=== PATIENT | female | born 1965 | race Caucasian/White ===

== ENCOUNTER 2019-10-09 14:31 | Inpatient (IN) ==
[2019-10-09] MEDS ORDERED: IOPAMIDOL 100 ML BOTTLE IV ONE (14:32)
[2019-10-09] MEDS ORDERED: ACETAMINOPHEN 1,000 MG/100 ML BOTTLE IV ONE ×2 (14:43→16:17)
[2019-10-09] MEDS ORDERED: 0.9 % SODIUM CHLORIDE 1,000 ML IV ONE (14:43)
[2019-10-09 15:02] LABS: POC Blood Urea Nitrogen 19 mg/dl (6-20); POC CO2 22 mmol/L (22-30); POC Calcium, Ionized 1.15 mmol/L (1.16-1.32); POC Chloride 105 mmol/L (96-108); POC Creatinine 1.2 mg/dl (0.6-1.1); POC Glucose, Random 149 mg/dL (70-105); POC Potassium 4.7 mmol/L (3.3-5.1); POC Sodium 137 mmol/L (133-145)
[2019-10-09] MEDS ORDERED: cefTRIAXone 1 GM VIAL IV ONE (15:05)
[2019-10-09 15:29] LABS: Basophils # (Auto) 0 K/mcL (0.0-0.3); Basophils % (Auto) 0.1 % (0.0-2.0); Eosinophils # (Auto) 0 K/mcL (0.0-0.7); Eosinophils % (Auto) 0.6 % (0.0-7.0); Granulocytes % (Auto) 86.5 % (38.0-78.0); Hematocrit 32.1 % (36.0-48.0); Hemoglobin 10.6 g/dL (12.0-15.0); Lymphocytes # (Auto) 0.5 K/mcL (1.5-4.8); Lymphocytes % (Auto) 7.7 % (15.5-49.0); Mean Cell Volume 89.2 fL (80.0-100.0); Mean Corpuscular HGB Conc 33.1 g/dL (31.0-36.0); Mean Platelet Volume 7.1 fL (7.4-10.4); Monocytes # (Auto) 0.3 K/mcL (0.1-0.9); Monocytes % (Auto) 5.1 % (1.0-12.0); Platelet Count 252 K/mcL (140-440); Red Cell Distribution Width 13.7 % (11.5-14.5); WBC 6.3 K/mcL (4.5-11.0)
[2019-10-09 15:43] LABS: INR 1.1 (0.9-1.1); Prothrombin Time 14.5 sec (11.9-14.5)
--- NOTE | 2019-10-09 15:49 | Emergency Department Note ---
Abdominal Pain HPI - General Source: patient, family, EMS Mode of arrival: EMS Limitations: no limitations - History of Present Illness Associated symptoms: Reports: fever, chills. Denies: nausea, vomiting, diarrhea, anorexia, syncope <Kimberlee Haskins - Last Filed: 10/09/19 15:46> <Lionel Guo - Last Filed: 10/09/19 22:00> - General Chief Complaint: Abdominal Pain Stated Complaint: Abdominal Discomfort, Abscesses to RLE, Fever Time Seen by Provider: 10/09/19 14:42 - History of Present Illness HPI Narrative: 53-year-old female presents with illness for the last week. States she is had a fever and chills as well as redness and boils to her thighs bilaterally. States she is been waiting to get into her primary care provider but has not been able to assist today she finally came in here. Temp of 104 on arrival. She is complaining of a headache. No sore throat, cough, chest congestion, or cold symptoms. She does complain of right lower quadrant pain for the last 3 to 4 days. Decreased appetite. No nausea, vomiting, or diarrhea. Abdominal pain is worse with movement. She also has tenderness to her legs where her boils are she states. (Kimberlee Haskins) Patient with Kimberlee Haskins [employer]. I agree with her evaluation management documentation. This is a 53-year-old female who is been sick for the last week. She has a history of abscesses to her right leg and they have come back-she reports "boils" to her posterior right leg. High fever noted. No nausea vomiting diarrhea. Significant belly pain on the right lower quadrant as well. (Lionel Guo) - Related Data Home Medications Medication Instructions Recorded Confirmed Atorvastatin [Lipitor] 40 mg PO ONCE 10/09/19 10/09/19 Clopidogrel Bisulfate [Plavix] 75 mg PO DAILY 10/09/19 10/09/19 DULoxetine HCL [Cymbalta] 30 mg PO HS 10/09/19 10/09/19 Diazepam [Valium] 1 tab PO DAILY PRN 10/09/19 10/09/19 Escitalopram [Lexapro] 20 mg PO DAILY 10/09/19 10/09/19 Furosemide [Lasix] 40 mg PO DAILY 10/09/19 10/09/19 Insulin Detemir [Levemir Flextouch] 35 unit SQ HS 10/09/19 10/09/19 Lisinopril [Zestril] 20 mg PO HS 10/09/19 10/09/19 Loperamide [Imodium] 4 mg PO BID PRN 10/09/19 10/09/19 Potassium Chloride 10 meq PO DAILY 10/09/19 10/09/19 Prazosin [Minipress] 1 mg PO HS 10/09/19 10/09/19 Topiramate [Topamax] 150 mg PO BID 10/09/19 10/09/19 Victoza 2-Wil 1.8 mg SQ DAILY 10/09/19 10/09/19 metFORMIN HCL [Metformin HCl] 1,000 mg PO BID 10/09/19 10/09/19 Allergies Allergy/AdvReac Type Severity Reaction Status Date / Time Sulfa (Sulfonamide Allergy Mild Hives Verified 08/09/19 14:55 Antibiotics) Review of Systems All systems ED: reviewed and negative except as stated. <Kimberlee Haskins - Last Filed: 10/09/19 15:46> Abdominal Pain PMH - Past Medical History Medical history: Reports: CVA, migraine, obesity (morbid), other ("fatty liver") - Social History Smoking status: Never smoker Alcohol use: Reports: None Drug use: Reports: none <Kimberlee Haskins - Last Filed: 10/09/19 15:46> - Past Medical History Attestation: Yes: The following information was validated with the patient. <Lionel Guo - Last Filed: 10/09/19 22:00> Physical Exam Limitations: no limitations General appearance: alert, other (morbid obesity, foul order present) Head: atraumatic, normocephalic, normal inspection Eye: Present: normal appearance. Absent: conjunctival injection ENT: Present: mucous membranes moist Chest: Present: symmetric chest wall rise Respiratory: Present: normal lung sounds bilaterally, other (dimished bases bilat). Absent: respiratory distress, rales/crackles, accessory muscle use Cardiovascular: Present: regular rate, normal heart sounds Abdominal: Present: soft, tenderness (RLQ), normal bowel sounds, other (large panis with red/moist fungal yeast infection present to fold of panis and inner thighs). Absent: distention, guarding, rebound, rigidity, mass Extremities: Present: other (redness and warmth to upper legs/inner thighs bilat, bilat posterior and medial thighs with small 3-4 cm multiple red raised abscess with scant drainage). Absent: normal inspection Neurological: Present: alert, oriented X3 Psychiatric: Present: agitated Skin: Present: warm, dry, intact, normal color <Kimberlee Haskins - Last Filed: 10/09/19 15:46> <Lionel Guo - Last Filed: 10/09/19 22:00> On my examination she is alert oriented able to answer questions appropriately. Heart is regular rate and rhythm no murmur appreciated. Lungs are clear to auscultation bilaterally without wheezes rales rhonchi or respiratory distress. Abdomen is soft mildly diffusely tender but she has a large pannus. She does have some mild intertrigo which looks candidal but not severe. She does also have cellulitis especially of the medial thighs and the posterior thighs. But she does have ulcerations and induration of several unroofed blisters at the back of her right thigh. This is acutely inflamed and erythematous significantly tender. I cultured this area with a swab. She is morbidly obese but she is able to move around in the bed some with mild assistance. (Lionel Guo) Course <Kimberlee Haskins - Last Filed: 10/09/19 15:46> Course Narrative: Patient on arrival and examination is refusing Tylenol. States she has a history of fatty liver and a history of kidney issues and she absolutely refuses to take Tylenol or ibuprofen but states she will take something stronger for headache. @ 1600 report given to Jamie Bryan NP and Dr. Guo due to shift change. (Kimberlee Haskins) Vital Signs Temperature 103.8 F H 10/09/19 14:32 Pulse Rate 104 H 10/09/19 14:32 Respiratory Rate 20 10/09/19 14:32 Pulse Oximetry (%) 100 10/09/19 14:32 Temperature 101.4 F H 10/09/19 21:41 Pulse Rate 92 H 10/09/19 21:41 Respiratory Rate 18 10/09/19 21:41 Blood Pressure 131/62 10/09/19 21:41 Pulse Oximetry (%) 97 10/09/19 21:41 Abdominal Pain - Lab Data Result diagrams: 10/09/19 14:50 10/09/19 14:50 <Kimberlee Haskins - Last Filed: 10/09/19 15:46> - Lab Data Lab results reviewed: Yes I reviewed the patient's lab results. Result diagrams: 10/09/19 14:50 10/09/19 14:50 - Radiology Data Radiology results reviewed: Yes I reviewed the patient's radiology results. <Lionel Guo - Last Filed: 10/09/19 22:00> - Lab Data Lab Results 10/09/19 10/09/19 10/09/19 Range/Units 14:50 14:50 14:50 WBC 6.3 (4.5-11.0) K/mcL RBC 3.60 L (4.00-5.20) M/mcL Hgb 10.6 L (12.0-15.0) g/dL Hct 32.1 L (36.0-48.0) % POC Hct 32.0 L (36.0-48.0) % MCV 89.2 (80.0-100.0) fL MCH 29.6 (26.0-34.0) pg MCHC 33.1 (31.0-36.0) g/dL RDW 13.7 (11.5-14.5) % Plt Count 252 (140-440) K/mcL MPV 7.1 L (7.4-10.4) fL Gran % 86.5 H (38.0-78.0) % Lymph % (Auto) 7.7 L (15.5-49.0) % [place] % (Auto) 5.1 (1.0-12.0) % Eos % (Auto) 0.6 (0.0-7.0) % Baso % (Auto) 0.1 (0.0-2.0) % Gran # 5.4 (1.8-8.0) K/mcL Lymph # (Auto) 0.5 L (1.5-4.8) K/mcL [place] # (Auto) 0.3 (0.1-0.9) K/mcL Eos # (Auto) 0 (0.0-0.7) K/mcL Baso # (Auto) 0 (0.0-0.3) K/mcL PT (11.9-14.5) sec INR (0.9-1.1) VBG Lactic Acid 1.5 (0.5-2.0) mmol/L POC Sodium 137 (133-145) mmol/L Sodium 134 (133-145) mmol/L POC Potassium 4.7 (3.3-5.1) mmol/L Potassium 4.7 (3.3-5.1) mmol/L POC Chloride 105 (96-108) mmol/L Chloride 101 (96-108) mmol/L Carbon Dioxide 21 L (22-30) mmol/L POC Total CO2 22 (22-30) mmol/L Anion Gap 12.0 (8-16) POC BUN 19 (6-20) mg/dl BUN 19 (6-20) mg/dl Creatinine 1.1 (0.6-1.1) mg/dl POC Creatinine 1.2 H (0.6-1.1) mg/dl GFR Calculation 58 Glucose 150 H (70-105) mg/dL POC Glucose 149 H (70-105) mg/dL Calcium 8.9 (8.6-10.4) mg/dl POC WB Ioniz Calcium 1.15 L (1.16-1.32) mmol/L Total Bilirubin 0.3 (0.0-1.0) mg/dL AST 8 (0-37) U/l ALT 9 (0-40) U/l Alkaline Phosphatase 99 (39-117) U/L Total Protein 7.5 (5.9-8.4) gm/dL Albumin 3.6 (3.2-5.2) gm/dL Globulin 3.9 H (2.2-3.7) gm/dL Albumin/Globulin Ratio 0.9 L (1.0-2.3) Procalcitonin (<0.10) ng/mL Urine Color Urine Appearance Urine pH (5.0-9.0) Ur Specific [place] (1.000-1.035) Urine Protein (NEG) mg/dL Urine Glucose (UA) (NEG) mg/dL Urine Ketones (NEG) mg/dL Urine Occult Blood (<0.03) mg/dL Urine Nitrate (NEG) Urine Bilirubin (NEG) mg/dL Urine Urobilinogen (NEG) mg/dL Ur Leukocyte Esterase (NEG) /uL Ur Culture Indicated? 10/09/19 10/09/19 10/09/19 Range/Units 14:50 14:50 15:41 WBC (4.5-11.0) K/mcL RBC (4.00-5.20) M/mcL Hgb (12.0-15.0) g/dL Hct (36.0-48.0) % POC Hct (36.0-48.0) % MCV (80.0-100.0) fL MCH (26.0-34.0) pg MCHC (31.0-36.0) g/dL RDW (11.5-14.5) % Plt Count (140-440) K/mcL MPV (7.4-10.4) fL Gran % (38.0-78.0) % Lymph % (Auto) (15.5-49.0) % [place] % (Auto) (1.0-12.0) % Eos % (Auto) (0.0-7.0) % Baso % (Auto) (0.0-2.0) % Gran # (1.8-8.0) K/mcL Lymph # (Auto) (1.5-4.8) K/mcL [place] # (Auto) (0.1-0.9) K/mcL Eos # (Auto) (0.0-0.7) K/mcL Baso # (Auto) (0.0-0.3) K/mcL PT 14.5 (11.9-14.5) sec INR 1.1 (0.9-1.1) VBG Lactic Acid (0.5-2.0) mmol/L POC Sodium (133-145) mmol/L Sodium (133-145) mmol/L POC Potassium (3.3-5.1) mmol/L Potassium (3.3-5.1) mmol/L POC Chloride (96-108) mmol/L Chloride (96-108) mmol/L Carbon Dioxide (22-30) mmol/L POC Total CO2 (22-30) mmol/L Anion Gap (8-16) POC BUN (6-20) mg/dl BUN (6-20) mg/dl Creatinine (0.6-1.1) mg/dl POC Creatinine (0.6-1.1) mg/dl GFR Calculation Glucose (70-105) mg/dL POC Glucose (70-105) mg/dL Calcium (8.6-10.4) mg/dl POC WB Ioniz Calcium (1.16-1.32) mmol/L Total Bilirubin (0.0-1.0) mg/dL AST (0-37) U/l ALT (0-40) U/l Alkaline Phosphatase (39-117) U/L Total Protein (5.9-8.4) gm/dL Albumin (3.2-5.2) gm/dL Globulin (2.2-3.7) gm/dL Albumin/Globulin Ratio (1.0-2.3) Procalcitonin < 0.10 (<0.10) ng/mL Urine Color Yellow Urine Appearance Clear Urine pH 7.0 (5.0-9.0) Ur Specific [place] 1.014 (1.000-1.035) Urine Protein Neg (NEG) mg/dL Urine Glucose (UA) Negative (NEG) mg/dL Urine Ketones Neg (NEG) mg/dL Urine Occult Blood Neg (<0.03) mg/dL Urine Nitrate Neg (NEG) Urine Bilirubin Neg (NEG) mg/dL Urine Urobilinogen Neg (NEG) mg/dL Ur Leukocyte Esterase Neg (NEG) /uL Ur Culture Indicated? No - Radiology Data CT scan of the abdomen and pelvis shows no acute findings (Lionel Guo) Disposition <Kimberlee Haskins - Last Filed: 10/09/19 15:46> Pt seen by [facility]/PA only: No <Lionel Guo - Last Filed: 10/09/19 22:00> Clinical Impression: Abscess or cellulitis of thigh Summary: Influenza swab and respiratory virus panel are negative for cause of her acute high fever. Blood culture was done and Rocephin was started. I did convince her to take IV Tylenol, which brought her fever down and she was feeling much better. We did give her some pain medicine as well. Laboratory work-up was not very remarkable but it does look like she is got severe cellulitis to her posterior right thigh and medial thigh area with an indurated area. I did not feel a specific abscess to this area so I&D is likely not helpful. She was tachycardic tachypneic and febrile and the source seems to be this cellulitis area of her posterior right thigh. I do think she is going to require IV antibiotics to prevent her from going septic. To that end I discussed the case with our hospitalist Dr. Aguilera, he agreed to accept the patient for further care and evaluation in the hospital (Lionel Guo) Disposition: Xfer As Inpt ([facility]) Condition: Fair Referrals: Yuri Hawk MD [Primary Care Provider] -
[2019-10-09 15:53] LABS: ALT/SGPT 9 U/l (0-40); AST/SGOT 8 U/l (0-37); Albumin 3.6 gm/dL (3.2-5.2); Albumin/Globulin Ratio 0.9 (1.0-2.3); Alkaline Phosphatase 99 U/L (39-117); Bilirubin,Total 0.3 mg/dL (0.0-1.0); Calcium 8.9 mg/dl (8.6-10.4); Carbon Dioxide 21 mmol/L (22-30); Chloride 101 mmol/L (96-108); Globulin 3.9 gm/dL (2.2-3.7); Glucose 150 mg/dL (70-105)
[2019-10-09 15:59] LABS: Blood Urea Nitrogen 19 mg/dl (6-20); Glomerular Filtration Rate 58
[2019-10-09 16:25] LABS: Appearance,Urine CLEAR; Bilirubin,Urine NEG (NEG); Color,Urine YELLOW; Culture Indicated,Urine NO; Glucose,Urine (UA) NEGATIVE (NEG); Ketones,Urine NEG (NEG); Leukocyte Esterase,Urine NEG /uL (NEG); Nitrate,Urine NEG (NEG); Protein,Urine NEG (NEG); Specific Gravity,Urine 1.014 (1.000-1.035); Urine Blood NEG mg/dL (<0.03); Urobilinogen,Urine NEG (NEG)
[2019-10-09] MEDS ORDERED: 0.9 % SODIUM CHLORIDE 2,000 ML IV ONE (16:36)
--- NOTE | 2019-10-09 17:06 | Cat Scan Report ---
CLINICAL INFORMATION: Right lower quadrant pain and fever COMPARISON: None. TECHNIQUE: Following enteric contrast, 80 cc of Isovue-370 were injected intravenously, and 60 seconds later, 0.625 mm helical slices were obtained from the mid heart through the subtrochanteric regions. Following reconstruction, 2.5 mm sagittal, coronal and axial reformatted images were processed and reviewed at bone, lung and soft tissue windows. Five minutes later, 0.625 mm helical slices were obtained from the mid heart through the kidneys and viewed at soft tissue windows.The exam was performed using radiation dose optimization techniques including, but not limited to, automated exposure control, adjustment of the mA and/or kV according to patient size and use of iterative reconstruction technique. FINDINGS: 6 lung bases show no abnormality no effusion. Heart is normal size. There appears to be calcification in the mitral annulus Abdominal images show the gallbladder is surgically absent. The common bile duct normal caliber: CBD is 5 mm. The liver, both adrenal glands, spleen, pancreas and aorta including aortic branches are normal in size, configuration and attenuation without focal lesion. 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 There is no free air, free fluid or adenopathy Pelvic images show the urinary bladder is drained with a Hayward catheter. The Hayward balloon is low in position and may be inflated within the posterior urethra. The uterus is normal postmenopausal size 7 x 4 cm there is an 18 mm submucosal fibroid posterior uterus. The stomach, small bowel, appendix and large bowel are all unremarkable. There is a 8 cm paraumbilical hernia containing only mesenteric fat. Bone windows show no osseous abnormality IMPRESSION: 1. No cause identified for right lower quadrant pain and fever - the appendix is normal 2. Malrotated kidneys 3. A a centimeter paraumbilical hernia containing only mesenteric fat. 4. 18 mm partially calcified submucosal fibroid in the uterine body Interpreted and Authenticated by: Andrea Arnold 10/09/19
[2019-10-09] MEDS ORDERED: HYDROmorphone 2 MG/ML VIAL IV ONE (19:54)
--- NOTE | 2019-10-09 21:54 | Internal Med History&Physical ---
Medical - H&P: [facility] Patient information: Note initiated : 10/09/19 at 9:50 pm Service Date, if different from initiated Date: [] Patient: Kait Tolentino 53 y/o F admitted on for Abdominal Discomfort, Abscesses to RLE, Fever. Chief Complaint: [] Chief complaint: tHigh pain/boils/abdominal pain and fever History of present illness: Ms. Tolentino is a 53 year old F with known history of diabetes/morbidly obese with BMI >65/hypertension and history of TIA who presents with shaking chills fever along with lower abdominal pain. Patient symptoms have progressed over the last few days. She has had recurrent boils around the inside and back of the thigh area. She was treated for the same at [facility] in March and underwent incision and drainage of groin abscess. For the last couple days she has had increasing malaise/fever/chills and lack of appetite. She noticed a couple of boils started draining. She presents today to the ER along with her [place]. Initial work-up was consistent with severe sepsis with a fever 103 tachycardia tachypnea and medial thigh boils with active drainage. CT abdomen was unremarkable. Thigh ultrasound pending. Hospitalist service was consulted for admission. At the time of evaluation patient is alert but anxious. She is febrile at 101.4. She received 1 dose of Rocephin. She denies change medication. Her blood sugars has not been optimally controlled recently. She denies smoking or alcoholism. She carries a history of MRSA and recurrent boils. She denies diarrhea, dysuria, headache, photophobia but endorses to myalgias. Review of systems A 10 point review of system was performed and is negative except for one discussed above Medical - H&P: PMH Medical history: DM type II Anxiety disorder Morbid obesity Hypertension History of TIA Hyperlipidemia Migraine Pertinent family history: Unremarkable Social history: No history of smoking Occasional alcohol to [place] Medical - H&P: Meds Home Medications Medication Instructions Recorded Confirmed Type Atorvastatin [Lipitor] 40 mg PO ONCE 10/09/19 10/09/19 History Clopidogrel Bisulfate [Plavix] 75 mg PO DAILY 10/09/19 10/09/19 History DULoxetine HCL [Cymbalta] 30 mg PO HS 10/09/19 10/09/19 History Diazepam [Valium] 1 tab PO DAILY PRN 10/09/19 10/09/19 History Escitalopram [Lexapro] 20 mg PO DAILY 10/09/19 10/09/19 History Furosemide [Lasix] 40 mg PO DAILY 10/09/19 10/09/19 History Insulin Detemir [Levemir Flextouch] 35 unit SQ HS 10/09/19 10/09/19 History Lisinopril [Zestril] 20 mg PO HS 10/09/19 10/09/19 History Loperamide [Imodium] 4 mg PO BID PRN 10/09/19 10/09/19 History Potassium Chloride 10 meq PO DAILY 10/09/19 10/09/19 History Prazosin [Minipress] 1 mg PO HS 10/09/19 10/09/19 History Topiramate [Topamax] 150 mg PO BID 10/09/19 10/09/19 History Victoza 2-Wil 1.8 mg SQ DAILY 10/09/19 10/09/19 History metFORMIN HCL [Metformin HCl] 1,000 mg PO BID 10/09/19 10/09/19 History Allergies Allergy/AdvReac Type Severity Reaction Status Date / Time Sulfa (Sulfonamide Allergy Mild Hives Verified 08/09/19 14:55 Antibiotics) Medical - H&P: Exam - Constitutional Vitals: Temp Pulse Resp BP Pulse Ox 101.4 F H 92 H 18 131/62 97 10/09/19 21:41 10/09/19 21:41 10/09/19 21:41 10/09/19 21:41 10/09/19 21:41 General appearance: morbidly obese Exam: Anxious, morbidly obese BMI over 65 Head normocephalic Oral cavity dry No ear nose discharge Eye movement symmetrical Neck no lymphadenopathy S1-S2 regular rhythm tachycardia Tachypnea but symmetric breath sounds Extensively pendulous abdomen with pannus, pannus fold erythema Lower extremity bilateral medial groin draining pustules/right posterior thigh 4 x 4 centimeter dusky tender and indurated area with minimal fluctuation Minimal lymphedema No cyanosis clubbing Skin no suspicious lesion Psych anxious but alert and cooperative Neuro nonfocal Medical - H&P: Reslt - Labs CBC & Chem 7: 10/10/19 04:15 10/10/19 04:15 Labs: Short CBC 10/09/19 Range/Units 14:50 WBC 6.3 (4.5-11.0) K/mcL Hgb 10.6 L (12.0-15.0) g/dL Hct 32.1 L (36.0-48.0) % Plt Count 252 (140-440) K/mcL BMP 10/09/19 14:50 Sodium 134 Potassium 4.7 Chloride 101 Carbon Dioxide 21 L BUN 19 Creatinine 1.1 Glucose 150 H Calcium 8.9 Liver Function 10/09/19 Range/Units 14:50 Total Bilirubin 0.3 (0.0-1.0) mg/dL AST 8 (0-37) U/l ALT 9 (0-40) U/l Alkaline Phosphatase 99 (39-117) U/L Albumin 3.6 (3.2-5.2) gm/dL Urine 10/09/19 Range/Units 15:41 Urine Color Yellow Urine Appearance Clear Urine pH 7.0 (5.0-9.0) Ur Specific [place] 1.014 (1.000-1.035) Urine Protein Neg (NEG) mg/dL Urine Glucose (UA) Negative (NEG) mg/dL Medical - H&P: A/P (1) Abscess or cellulitis of thigh Current visit: Yes Status: Acute * Cellulitis with furunculosis/abscess medial and posterior R thigh, history of MRSA, imaging with ultrasound/antibiotic coverage for strep/MRSA, surgery consult * Early sepsis-management per guidelines * DM type II-basal prandial insulin, CC diet, optimize blood sugar control * Morbid obesity-frequent turning/perineal care/nutrition consult * Hypertension hold antihypertensives until systolics stabilizes * History of TIA continue Plavix statin * Hyperlipidemia continue statin * Anxiety disorder continue diazepam/Cymbalta * Full code * Prophylaxis heparin Plan * Inpatient admission * Broad antibiotic coverage * Prior medical condition management home meds * Surgery consult * Keep n.p.o. after midnight
[2019-10-09] MEDS ORDERED: POTASSIUM CHLORIDE 20 MEQ PACKET PO PRN (22:56)
[2019-10-09] MEDS ORDERED: MAGNESIUM HYDROXIDE 30 ML ORAL.SUSP PO PRN (22:56)
[2019-10-09] MEDS ORDERED: MAGNESIUM SULFATE 2 GM/50 ML BAG IV PRN (22:56)
[2019-10-09] MEDS ORDERED: POLYETHYLENE GLYCOL 3350 17 GM PACKET PO PRN (22:56)
[2019-10-09] MEDS ORDERED: DEXTROSE 31 GM ORAL.SUSP PO PRN (22:56)
[2019-10-09] MEDS ORDERED: ONDANSETRON 4 MG/2 ML VIAL IV PRN (22:56)
[2019-10-09] MEDS ORDERED: ATORVASTATIN 40 MG TABLET PO SCH (22:56)
[2019-10-09] MEDS ORDERED: DEXTROSE 50% 50 ML VIAL IV PRN (22:56)
[2019-10-09] MEDS ORDERED: LOPERAMIDE 2 MG CAPSULE PO PRN (22:56)
[2019-10-09] MEDS ORDERED: ACETAMINOPHEN 325 MG TABLET PO PRN (22:56)
[2019-10-09] MEDS ORDERED: VANCOMYCIN PER PHARMACY IV SCH (22:56)
[2019-10-09] MEDS ORDERED: DIAZEPAM 2 MG TABLET PO PRN (22:56)
[2019-10-09] MEDS ORDERED: MELATONIN 3 MG TABLET PO PRN (22:56)
[2019-10-09] MEDS ORDERED: hydrALAZINE 20 MG/ML VIAL IV PRN (22:56)
[2019-10-09] MEDS ORDERED: ACETAMINOPHEN 650 MG/65 ML BOTTLE IV PRN (22:56)
[2019-10-09] MEDS ORDERED: VANCOMYCIN 1,500 MG in 0.9 % SODIUM CHLORIDE 500 ML IV ONE (23:23)
[2019-10-09] MEDS: PIPERACILLIN SODIUM/TAZOBACTAM 3.375 GM in DEXTROSE 5% IN WATER 50 ML IV SCH (23:43)
[2019-10-09] MEDS: 0.9 % SODIUM CHLORIDE 10 ML SYRINGE IV SCH (23:44)
[2019-10-09] MEDS: METOPROLOL TARTRATE 5 MG/5 ML VIAL IV SCH ×2 (23:47→23:48)
[2019-10-10] MEDS: HYDROcodone/APAP 5/325MG TABLET PO PRN ×4 (02:20→23:29)
[2019-10-10] MEDS ORDERED: HYDROcodone/APAP 5/325MG TABLET PO ONE (02:23)
[2019-10-10] MEDS: PIPERACILLIN SODIUM/TAZOBACTAM 3.375 GM in DEXTROSE 5% IN WATER 50 ML IV SCH ×3 (04:41→17:21)
[2019-10-10] MEDS: 0.9 % SODIUM CHLORIDE 10 ML SYRINGE IV SCH ×3 (05:10→20:31)
[2019-10-10 06:30] LABS: Hematocrit 30.5 % (36.0-48.0); Hemoglobin 10.1 g/dL (12.0-15.0); Mean Cell Volume 90.3 fL (80.0-100.0); Mean Platelet Volume 7.2 fL (7.4-10.4); Platelet Count 210 K/mcL (140-440); RBC 3.38 M/mcL (4.00-5.20); Red Cell Distribution Width 13.6 % (11.5-14.5); WBC 5.8 K/mcL (4.5-11.0)
[2019-10-10 07:01] LABS: Bilirubin,Direct < 0.2 mg/dL (0.0-0.3); Chloride 103 mmol/L (96-108)
[2019-10-10 07:12] LABS: ALT/SGPT 8 U/l (0-40); AST/SGOT 12 U/l (0-37); Albumin 3.2 gm/dL (3.2-5.2); Albumin/Globulin Ratio 0.8 (1.0-2.3); Alkaline Phosphatase 85 U/L (39-117); Bilirubin,Total 0.2 mg/dL (0.0-1.0); Blood Urea Nitrogen 19 mg/dl (6-20); Calcium 8.5 mg/dl (8.6-10.4); Carbon Dioxide 20 mmol/L (22-30); Globulin 3.8 gm/dL (2.2-3.7); Glomerular Filtration Rate 47; Glucose 138 mg/dL (70-105); Lactate Dehydrogenase 175 U/L (94-250); Phosphorous 3.5 mg/dL (2.7-4.5); Triglycerides 133 mg/dl (<150); Uric Acid 8.4 mg/dL (2.5-8.0)
[2019-10-10 07:20] LABS: Band Neutrophils % 6 % (0-10); Lymphocytes % 18 % (15-49); Monocytes % (Manual) 10 % (1-12); Myelocytes % 1 % (0-0); Platelet Estimate NORMAL (NORMAL); RBC Morphology NORMAL (NORMAL); Segmented Neutrophils % 65 % (38-78)
[2019-10-10] MEDS ORDERED: FUROSEMIDE 40 MG/4 ML VIAL IV SCH (08:00)
[2019-10-10] MEDS ORDERED: POTASSIUM CHLORIDE 10 MEQ TABLET PO SCH (08:00)
[2019-10-10] MEDS ORDERED: MULTIVIT,THER IRON,CA,FA & MIN 1 TABLET PO SCH (09:00)
[2019-10-10] MEDS ORDERED: CLOPIDOGREL 75 MG TABLET PO SCH (09:00)
[2019-10-10] MEDS ORDERED: HEPARIN 5,000 UNIT/ML VIAL SQ SCH (09:00)
[2019-10-10] MEDS ORDERED: sitaGLIPtin 100 MG TABLET PO SCH (09:00)
[2019-10-10] MEDS ORDERED: VICTOZA SC SCH (09:00)
[2019-10-10] MEDS ORDERED: VANCOMYCIN 1,500 MG in 0.9 % SODIUM CHLORIDE 500 ML IV SCH (09:00)
[2019-10-10] MEDS ORDERED: TOPIRAMATE 100 MG TABLET PO SCH (09:00)
[2019-10-10] MEDS ORDERED: DOCUSATE SODIUM 100 MG CAPSULE PO SCH (09:00)
[2019-10-10] MEDS ORDERED: PAK SC SCH (09:00)
[2019-10-10] MEDS ORDERED: ESCITALOPRAM 20 MG TABLET PO SCH (09:00)
[2019-10-10] MEDS: INSULIN LISPRO 1 UNIT/0.01 ML UNIT SQ SCH ×4 (09:14→20:28)
--- NOTE | 2019-10-10 09:37 | Internal Med Progress Note ---
Medical - PN: Subj Patient information: Note initiated : 10/10/19 at 9:35 am Service Date, if different from initiated Date: [] Patient: Kait Tolentino 53 y/o F admitted on 10/09/19 for Abdominal Discomfort, Abscesses to RLE, Fever. Chief Complaint: [] Interval history: Ms. Tolentino is a 53 year old F with known history of diabetes/morbidly obese with BMI >65/hypertension and history of TIA who presents with shaking chills fever along with lower abdominal pain. Patient symptoms have progressed over the last few days. She has had recurrent boils around the inside and back of the thigh area. She was treated for the same at [facility] in March and underwent incision and drainage of groin abscess. For the last couple days she has had increasing malaise/fever/chills and lack of appetite. She noticed a couple of boils started draining. She presents today to the ER along with her [place]. Initial work-up was consistent with severe sepsis with a fever 103 tachycardia tachypnea and medial thigh boils with active drainage. CT abdomen was unremarkable. Thigh ultrasound pending. Hospitalist service was consulted for admission. At the time of evaluation patient is alert but anxious. She is febrile at 101.4. She received 1 dose of Rocephin. She denies change medication. Her blood sugars has not been optimally controlled recently. She denies smoking or alcoholism. She carries a history of MRSA and recurrent boils. She denies diarrhea, dysuria, headache, photophobia but endorses to myalgias. 10/10-patient doing well. Fever defervesced. Minimal pain diarrhea. By ultrasound today. Continuing antibiotic coverage. White count 6000. Tachycardia improved. Blood sugars around goal. Creatinine 1.3. Continue holding RADHA inhibitors. Diabetic diet - Constitutional Vitals: Vital Signs Temp Pulse Resp BP Pulse Ox 99.2 F H 92 H 16 99/58 94 10/10/19 06:51 10/10/19 06:51 10/10/19 06:51 10/10/19 06:51 10/10/19 06:51 Period Temp Pulse Resp BP Sys/Jay Pulse Ox Last 24 Hr 98.6 F-104.0 F 90-107 16-39 99-157/27-113 92-100 Intake and Output 10/09/19 10/10/1919 21:59 05:59 13:59 Intake Total 3100 350 Output Total 2400 Balance 310 Weight 365 lb 372 lb Intake & Output: Intake & Output 10/09/19 10/10/19 10/10/19 21:59 05:59 13:59 Intake Total 3100 350 Output Total 2400 Balance 310 -2050 Weight 365 lb 372 lb Intake: IV 3100 50 Sodium Chloride 0.9% 2,000 ml @ 3000 Wide Open IV BOLUS ONE Rx#: [id number] Zosyn 3.375 gm In Dextrose 5% 50 in Water 50 ml @ 100 mls/hr IV Q6H NITESH Rx#:[id number] Oral 300 Output: Urine Catheter Amount 2400 Other: Urine Appearance Clear Uretheral ([place]) Sediment Clear Urine Color Bright Yellow Uretheral ([place]) Dark Yellow Urine Odor Normal Uretheral ([place]) Strong General appearance: morbidly obese Exam: No anxiety Nonlabored breathing Nondistended nontender abdomen Right posterior thigh indurated area Medical - PN: Obj Da - Labs CBC & Chem 7: 10/10/19 04:15 10/10/19 04:15 Labs: Abnormal Lab Results 10/10/19 10/10/19 10/09/19 04:15 04:15 14:50 RBC 3.38 L Hgb 10.1 L Hct 30.5 L POC Hct MPV 7.2 L Gran % Lymph % (Auto) Lymph # (Auto) Myelocytes % 1 H ESR Carbon Dioxide 20 L Creatinine 1.3 H POC Creatinine Glucose 138 H POC Glucose Uric Acid 8.4 H Calcium 8.5 L POC WB Ioniz Calcium C-Reactive Protein 10.5 H Globulin 3.8 H Albumin/Globulin Ratio 0.8 L 10/09/19 10/09/19 10/09/19 14:50 14:50 14:50 RBC 3.60 L Hgb 10.6 L Hct 32.1 L POC Hct 32.0 L MPV 7.1 L Gran % 86.5 H Lymph % (Auto) 7.7 L Lymph # (Auto) 0.5 L Myelocytes % ESR 104 H Carbon Dioxide 21 L Creatinine POC Creatinine 1.2 H Glucose 150 H POC Glucose 149 H Uric Acid Calcium POC WB Ioniz Calcium 1.15 L C-Reactive Protein Globulin 3.9 H Albumin/Globulin Ratio 0.9 L Meds: Medications Acetaminophen (Tylenol) 650 mg PO Q4-6HP PRN; Protocol PRN Reason: Per Pain Protocol/Fever > 101 Hydrocodone Bitart/Acetaminophen ([place] 5/325mg) 0 tab PO Q4HP PRN; Protocol PRN Reason: Per Pain Protocol Last Admin: 10/10/19 02:20 Dose: 2 tab Documented by: Atorvastatin Calcium (Lipitor) 40 mg PO HS [facility] Clopidogrel Bisulfate (Plavix) 75 mg PO DAILY [facility] Last Admin: 10/10/19 09:15 Dose: 75 mg Documented by: Dextrose (Dextrose 50%) 0 ml IV UD PRN PRN Reason: Hypoglycemia Diagnostic Test (Pha) (Accu-Chek) 1 each FS ACHS [facility] Last Admin: 10/10/19 07:54 Dose: 1 each Documented by: Diazepam (Valium) 2 mg PO DAILYP PRN PRN Reason: Anxiety Docusate Sodium (Colace) 100 mg PO BID [facility] Last Admin: 10/10/19 09:15 Dose: 100 mg Documented by: Duloxetine HCl (Cymbalta) 30 mg PO HS [facility] Escitalopram Oxalate (Lexapro) 20 mg PO DAILY [facility] Last Admin: 10/10/19 09:15 Dose: 20 mg Documented by: Furosemide (Lasix) 20 mg IV BIDD [facility] Last Admin: 10/10/19 07:49 Dose: 20 mg Documented by: Glucose (Insta-Glucose) 15 gm PO PRN PRN PRN Reason: Hypoglycemia Heparin Sodium (Porcine) (Heparin) 5,000 unit SQ Q12 [facility] Last Admin: 10/10/19 09:14 Dose: 5,000 unit Documented by: Hydralazine HCl (Apresoline) 10 mg IV Q4-6HP PRN PRN Reason: Hypertension Acetaminophen (Ofirmev) 650 mg in 65 mls @ 130 mls/hr IV Q6HP PRN; Protocol PRN Reason: Per Pain Protocol/Fever > 101 Last Admin: 10/09/19 23:48 Dose: 130 mls/hr Documented by: Magnesium Sulfate (Magnesium Sulfate) 2 gm in 50 mls @ 50 mls/hr IV UD PRN PRN Reason: MG = or < 1.7 Piperacillin Sod/Tazobactam (Sod 3.375 gm/ Dextrose) 50 mls @ 100 mls/hr IV Q6H [facility]; Protocol Last Admin: 10/10/19 04:41 Dose: 100 mls/hr Documented by: Vancomycin HCl 1,500 mg/ (Sodium Chloride) 500 mls @ 333.3 mls/hr IV Q12H [facility] Last Admin: 10/10/19 09:15 Dose: 333.3 mls/hr Documented by: Insulin Glargine (Lantus) 35 unit SQ HS [facility] Insulin Human Lispro (Humalog) 0 unit SQ [facility]; Protocol Last Admin: 10/10/19 09:14 Dose: 1 unit Documented by: Iron Carb/Multivit/[place]/Folic Acid (Multivitamin W/Minerals) 1 tab PO DAILY [facility] Last Admin: 10/10/19 09:15 Dose: 1 tab Documented by: Loperamide HCl (Imodium) 4 mg PO BIDP PRN PRN Reason: Diarrhea Magnesium Hydroxide (Milk Of Magnesia) 30 ml PO HSP PRN PRN Reason: Constipation Melatonin (Melatonin 3mg Tablet) 3 mg PO HSP PRN PRN Reason: Insomnia Ondansetron HCl (Zofran) 4 mg IV Q4-6HP PRN; Protocol PRN Reason: Nausea And Vomiting Victoza 2-Wil 1.8 Mg 1 dose SC DAILY [facility] Last Admin: 10/10/19 09:25 Dose: Not Given Documented by: Polyethylene Glycol (Miralax) 17 gm PO DAILYP PRN PRN Reason: Constipation Potassium Chloride (Klor-Con) 40 meq PO DAILYP PRN PRN Reason: K+ < 3.5 [facility] Last Admin: 10/10/19 07:49 Dose: 10 meq Documented by: Prazosin HCl (Minipress) 1 mg PO [facility] Senna/Docusate Sodium (Senna Plus Tablet) 1 tab PO [facility] Sitagliptin Phosphate (Januvia) 100 mg PO DAILY [facility] Last Admin: 10/10/19 09:15 Dose: 100 mg Documented by: Sodium Chloride (Saline Flush) 10 ml IV Q8 [facility] Last Admin: 10/10/19 05:10 Dose: 10 ml Documented by: Topiramate (Topamax) 150 mg PO BID [facility] Last Admin: 10/10/19 09:15 Dose: 150 mg Documented by: Vancomycin HCl (Vancomycin Per Pharmacy) 1 order IV [facility] [place]; Protocol Medical - PN: A/P - Time Spent With Patient Total time spent is greater than 50% in coordination of care (as documented) at patient's floor/unit and/or counseling patient: 25 - 35 minutes (1) Abscess or cellulitis of thigh Status: Acute Assessment and plan: * Cellulitis with furunculosis/abscess medial and posterior R thigh, history of MRSA, await imaging/records from [place]/antibiotic coverage for strep/MRSA, surgery consult * Early sepsis-clinically improving with management per guidelines * DM type II-basal prandial insulin, CC diet, optimize blood sugar control * Mild BANG with creatinine 1.3. Hold RADHA inhibitors. Crystalloids * Morbid obesity-frequent turning/perineal care/nutrition consult * Hypertension hold RADHA inhibitor until systolics stabilizes * History of TIA continue Plavix statin * Hyperlipidemia continue statin * Anxiety disorder continue diazepam/Cymbalta * Full code * Prophylaxis heparin Plan * Continue broad antibiotic coverage * Crystalloid bolus * Monitor renal function * Prior medical condition management home meds * Surgery consult * Medical records from [facility] Current Visit: Yes Medical - PN: Qual - VTE Deep Vein Thrombosis/Pulmonary Embolism Present on Admission: No
[2019-10-10] MEDS ORDERED: 0.9 % SODIUM CHLORIDE 1,000 ML IV SCH ×2 (09:45→14:39)
--- NOTE | 2019-10-10 10:01 | Ultrasound Report ---
CLINICAL INFORMATION: Right thigh abcess COMPARISON: None. FINDINGS: There is moderate diffuse cellulitis appreciated. There is no fluid collection to suggest an abscess IMPRESSION: Diffuse cellulitis.. No evidence of abscess in the posterior right thigh Interpreted and Authenticated by: Andrea Arnold 10/10/19
[2019-10-10] MEDS ORDERED: ACETAMINOPHEN 325 MG TABLET PO PRN (14:39)
[2019-10-10] MEDS ORDERED: NOREPINEPHRINE BITARTRATE 16 MG in 0.9 % SODIUM CHLORIDE 234 ML IV PRN (14:39)
[2019-10-10] MEDS ORDERED: hydrALAZINE 20 MG/ML VIAL IV PRN (14:39)
[2019-10-10] MEDS ORDERED: ACETAMINOPHEN 650 MG/65 ML BOTTLE IV PRN (14:39)
[2019-10-10] MEDS ORDERED: VANCOMYCIN PER PHARMACY IV SCH (14:39)
[2019-10-10] MEDS ORDERED: DEXTROSE 31 GM ORAL.SUSP PO PRN (14:39)
[2019-10-10] MEDS ORDERED: DEXTROSE 50% 50 ML VIAL IV PRN (14:39)
[2019-10-10] MEDS ORDERED: DIAZEPAM 2 MG TABLET PO PRN (14:39)
[2019-10-10] MEDS ORDERED: POLYETHYLENE GLYCOL 3350 17 GM PACKET PO PRN (14:39)
[2019-10-10] MEDS ORDERED: MAGNESIUM HYDROXIDE 30 ML ORAL.SUSP PO PRN (14:39)
[2019-10-10] MEDS ORDERED: POTASSIUM CHLORIDE 20 MEQ PACKET PO PRN (14:39)
[2019-10-10] MEDS ORDERED: LOPERAMIDE 2 MG CAPSULE PO PRN (14:39)
[2019-10-10] MEDS ORDERED: ONDANSETRON 4 MG/2 ML VIAL IV PRN (14:39)
[2019-10-10] MEDS ORDERED: MAGNESIUM SULFATE 2 GM/50 ML BAG IV PRN (14:39)
[2019-10-10] MEDS ORDERED: BACITRACIN TOPICAL OINT 15 GM TUBE TOPICAL SCH (15:00)
[2019-10-10] MEDS: 0.9 % SODIUM CHLORIDE 1,000 ML IV SCH (15:20)
[2019-10-10] MEDS: BACITRACIN TOPICAL OINT 15 GM TUBE TOPICAL SCH ×2 (15:30→20:27)
[2019-10-10] MEDS: FUROSEMIDE 40 MG/4 ML VIAL IV SCH (15:31)
--- NOTE | 2019-10-10 16:44 | General Surgery Consult Note ---
History of Present Illness Patient information: Note initiated : 10/10/19 at 4:41 pm Service Date, if different from initiated Date: [] Patient: Kait Tolentino 53 y/o F admitted on 10/09/19 for Abdominal Discomfort, Abscesses to RLE, Fever. Chief Complaint: [] Reason for consult: other (abscesses of bilateral lower extremities) Requesting physician: Jon Bunch History of present illness: 53-year-old female with history of uncontrolled diabetes and morbid obesity. She presents with multiple abscesses of her left medial thigh and her right posterior thigh. She has a picture of early sepsis. She has a history of MRSA infection in the past. A preliminary cultures from the drainage shows MRSA. Patient is scheduled for debridement under anesthesia. Ultrasound of the areas placenta did not show any abnormality however clinically she had large abscesses that would need to have wide excision and debridement. She has been febrile. Review of Systems - Constitutional headache(s), malaise, night sweats, weight gain - Cardiovascular diaphoresis - Respiratory no cough, no wheezing, no snoring - Gastrointestinal no abdominal pain, no nausea - Integumentary new lesions, skin ulcer, wounds, no pruritus, no rash - Endocrine polydipsia, polyphagia - Hematologic/Lymphatic no easy bleeding, no easy bruising, no lymphadenopathy Past History Past medical history: Uncontrolled diabetes mellitus Hypertension History of TIA Chronic anxiety disorder History of migraine headaches Past surgical history: Laparoscopic cholecystectomy 2009 Past family history: Occasional alcohol use Denies tobacco use Medications and Allergies Home Medications Medication Instructions Recorded Confirmed Type Atorvastatin [Lipitor] 40 mg PO ONCE 10/09/19 10/09/19 History Clopidogrel Bisulfate [Plavix] 75 mg PO DAILY 10/09/19 10/09/19 History DULoxetine HCL [Cymbalta] 30 mg PO HS 10/09/19 10/09/19 History Diazepam [Valium] 1 tab PO DAILY PRN 10/09/19 10/09/19 History Escitalopram [Lexapro] 20 mg PO DAILY 10/09/19 10/09/19 History Furosemide [Lasix] 40 mg PO DAILY 10/09/19 10/09/19 History Insulin Detemir [Levemir Flextouch] 35 unit SQ HS 10/09/19 10/09/19 History Lisinopril [Zestril] 20 mg PO HS 10/09/19 10/09/19 History Loperamide [Imodium] 4 mg PO BID PRN 10/09/19 10/09/19 History Potassium Chloride 10 meq PO DAILY 10/09/19 10/09/19 History Prazosin [Minipress] 1 mg PO HS 10/09/19 10/09/19 History Topiramate [Topamax] 150 mg PO BID 10/09/19 10/09/19 History Victoza 2-Wil 1.8 mg SQ DAILY 10/09/19 10/09/19 History metFORMIN HCL [Metformin HCl] 1,000 mg PO BID 10/09/19 10/09/19 History Allergies Allergy/AdvReac Type Severity Reaction Status Date / Time Sulfa (Sulfonamide Allergy Mild Hives Verified 08/09/19 14:55 Antibiotics) Exam Temp Pulse Resp BP Pulse Ox 99.9 F H 87 24 H 124/57 94 10/10/19 15:31 10/10/19 15:31 10/10/19 15:31 10/10/19 15:31 10/10/19 15:31 - General physical appearance well developed, well nourished, no distress, obese (morbidly obese) - Eyes PERRL, normal ocular movement - ENT normal pinna, normal nares, normal mucosa, no hearing loss, no congestion - Head Head exam IM: Present: atraumatic, normocephalic - Neck no masses, no bruits, trachea midline, no lymphadenopathy, no venous distension - Cardiovascular Cardiovascular exam IM: Present: normal rate and rhythm - Respiratory normal expansion, normal respiratory effort, clear to auscultation - Abdomen Abdomen: Present: soft, non tender, bowel sounds Hernia: Present: none - Genitourinary Present: normal external genitalia - Rectum Rectum: Present: normal sphincter tone, no hemorrhoids, no tenderness, no masses, no bleeding - Integumentary Present: no rash, no growths, no abnormal pigmentation, other (large draining abscesses posterior aspect of right thigh and left medial thigh) - Neurologic Present: normal coordination, normal sensation - Musculoskeletal Present: normal gait, normal posture - Psychiatric Present: oriented to time, oriented to person, oriented to place, speech is normal, memory intact Results - Labs 10/10/19 04:15 10/10/19 04:15 Abnormal lab results 10/09/19 10/09/19 10/10/19 Range/Units 14:50 14:50 04:15 RBC 3.38 L (4.00-5.20) M/mcL Hgb 10.1 L (12.0-15.0) g/dL Hct 30.5 L (36.0-48.0) % MPV 7.2 L (7.4-10.4) fL Myelocytes % 1 H (0-0) % ESR 104 H (0-20) mm/hr Carbon Dioxide (22-30) mmol/L Creatinine (0.6-1.1) mg/dl Glucose (70-105) mg/dL Uric Acid (2.5-8.0) mg/dL Calcium (8.6-10.4) mg/dl C-Reactive Protein 10.5 H (0.0-0.8) mg/dl Globulin (2.2-3.7) gm/dL Albumin/Globulin Ratio (1.0-2.3) 10/10/19 Range/Units 04:15 RBC (4.00-5.20) M/mcL Hgb (12.0-15.0) g/dL Hct (36.0-48.0) % MPV (7.4-10.4) fL Myelocytes % (0-0) % ESR (0-20) mm/hr Carbon Dioxide 20 L (22-30) mmol/L Creatinine 1.3 H (0.6-1.1) mg/dl Glucose 138 H (70-105) mg/dL Uric Acid 8.4 H (2.5-8.0) mg/dL Calcium 8.5 L (8.6-10.4) mg/dl C-Reactive Protein (0.0-0.8) mg/dl Globulin 3.8 H (2.2-3.7) gm/dL Albumin/Globulin Ratio 0.8 L (1.0-2.3) Diabetes panel 10/10/19 Range/Units 04:15 Sodium 137 (133-145) mmol/L Potassium 4.2 (3.3-5.1) mmol/L Chloride 103 (96-108) mmol/L Carbon Dioxide 20 L (22-30) mmol/L BUN 19 (6-20) mg/dl Creatinine 1.3 H (0.6-1.1) mg/dl Glucose 138 H (70-105) mg/dL Calcium 8.5 L (8.6-10.4) mg/dl AST 12 (0-37) U/l ALT 8 (0-40) U/l Alkaline Phosphatase 85 (39-117) U/L Total Protein 7.0 (5.9-8.4) gm/dL Albumin 3.2 (3.2-5.2) gm/dL Triglycerides 133 (<150) mg/dl Calcium panel 10/10/19 Range/Units 04:15 Calcium 8.5 L (8.6-10.4) mg/dl Phosphorus 3.5 (2.7-4.5) mg/dL Albumin 3.2 (3.2-5.2) gm/dL Pituitary panel 10/10/19 Range/Units 04:15 Sodium 137 (133-145) mmol/L Potassium 4.2 (3.3-5.1) mmol/L Chloride 103 (96-108) mmol/L Carbon Dioxide 20 L (22-30) mmol/L BUN 19 (6-20) mg/dl Creatinine 1.3 H (0.6-1.1) mg/dl Glucose 138 H (70-105) mg/dL Calcium 8.5 L (8.6-10.4) mg/dl Adrenal panel 10/10/19 Range/Units 04:15 Sodium 137 (133-145) mmol/L Potassium 4.2 (3.3-5.1) mmol/L Chloride 103 (96-108) mmol/L Carbon Dioxide 20 L (22-30) mmol/L BUN 19 (6-20) mg/dl Creatinine 1.3 H (0.6-1.1) mg/dl Glucose 138 H (70-105) mg/dL Calcium 8.5 L (8.6-10.4) mg/dl Total Bilirubin 0.2 (0.0-1.0) mg/dL AST 12 (0-37) U/l ALT 8 (0-40) U/l Alkaline Phosphatase 85 (39-117) U/L Total Protein 7.0 (5.9-8.4) gm/dL Albumin 3.2 (3.2-5.2) gm/dL All other labs normal. Assessment and Plan (1) Abscess of left thigh Patient is counseled for wide excision and debridement of abscesses of bilateral thighs under anesthesia tomorrow Her present antibiotic coverage is adequate until sensitivities return Nothing by mouth after midnight Status: Acute (2) Abscess of right thigh Status: Acute (3) Diabetes mellitus type 2 in obese Status: Acute
[2019-10-10] MEDS: 0.9 % SODIUM CHLORIDE 250 ML IV SCH (16:55)
[2019-10-10] MEDS: DOCUSATE SODIUM 100 MG CAPSULE PO SCH (20:28)
[2019-10-10] MEDS: TOPIRAMATE 100 MG TABLET PO SCH (20:28)
[2019-10-10] MEDS: HEPARIN 5,000 UNIT/ML VIAL SQ SCH (20:29)
[2019-10-10] MEDS: VANCOMYCIN 1,500 MG in 0.9 % SODIUM CHLORIDE 500 ML IV SCH (20:31)
[2019-10-10] MEDS ORDERED: SENNOSIDES/DOCUSATE SODIUM 1 TAB TABLET PO SCH ×2 (21:00)
[2019-10-10] MEDS ORDERED: PRAZOSIN 1 MG CAPSULE PO SCH ×2 (21:00)
[2019-10-10] MEDS ORDERED: ATORVASTATIN 40 MG TABLET PO SCH ×2 (21:00)
[2019-10-10] MEDS ORDERED: INSULIN DETEMIR 35 UNIT SQ SCH (21:00)
[2019-10-10] MEDS ORDERED: DULoxetine 30 MG CAPSULE PO SCH ×2 (21:00)
[2019-10-10] MEDS ORDERED: INSULIN GLARGINE, HUMAN 1 UNIT/0.01 ML SQ SCH ×2 (21:00)
[2019-10-10] MEDS ORDERED: MELATONIN 3 MG TABLET PO PRN (21:00)
[2019-10-11] MEDS: PIPERACILLIN SODIUM/TAZOBACTAM 3.375 GM in DEXTROSE 5% IN WATER 50 ML IV SCH ×2 (00:33→05:38)
[2019-10-11] MEDS: 0.9 % SODIUM CHLORIDE 250 ML IV SCH ×2 (05:26→15:00)
[2019-10-11 05:36] LABS: Hematocrit 29.9 % (36.0-48.0); Hemoglobin 9.9 g/dL (12.0-15.0); Mean Cell Volume 89.7 fL (80.0-100.0); Mean Platelet Volume 7.2 fL (7.4-10.4); Platelet Count 201 K/mcL (140-440); RBC 3.33 M/mcL (4.00-5.20); Red Cell Distribution Width 14.3 % (11.5-14.5); WBC 4.7 K/mcL (4.5-11.0)
[2019-10-11] MEDS: 0.9 % SODIUM CHLORIDE 10 ML SYRINGE IV SCH ×3 (05:39→20:59)
[2019-10-11 05:57] LABS: INR 1.2 (0.9-1.1); Prothrombin Time 14.8 sec (11.9-14.5)
[2019-10-11 06:30] LABS: Band Neutrophils % 9 % (0-10); Eosinophils % (Manual) 12 % (0-7); Lymphocytes % 30 % (15-49); Monocytes % (Manual) 3 % (1-12); Platelet Estimate NORMAL (NORMAL); RBC Morphology NORMAL (NORMAL); Segmented Neutrophils % 46 % (38-78)
[2019-10-11 06:45] LABS: ALT/SGPT 10 U/l (0-40); AST/SGOT 13 U/l (0-37); Albumin/Globulin Ratio 0.8 (1.0-2.3); Alkaline Phosphatase 89 U/L (39-117); Bilirubin,Direct < 0.2 mg/dL (0.0-0.3); Bilirubin,Total 0.2 mg/dL (0.0-1.0); Blood Urea Nitrogen 19 mg/dl (6-20); Calcium 8.3 mg/dl (8.6-10.4); Carbon Dioxide 19 mmol/L (22-30); Chloride 105 mmol/L (96-108); Globulin 3.8 gm/dL (2.2-3.7); Glomerular Filtration Rate 43; Glucose 162 mg/dL (70-105); Lactate Dehydrogenase 178 U/L (94-250); Phosphorous 4.2 mg/dL (2.7-4.5); Triglycerides 178 mg/dl (<150)
[2019-10-11] MEDS ORDERED: POTASSIUM CHLORIDE 10 MEQ TABLET PO SCH (08:00)
[2019-10-11] MEDS: INSULIN LISPRO 1 UNIT/0.01 ML UNIT SQ SCH ×5 (08:45→20:56)
[2019-10-11] MEDS: HEPARIN 5,000 UNIT/ML VIAL SQ SCH (08:53)
[2019-10-11] MEDS: DOCUSATE SODIUM 100 MG CAPSULE PO SCH ×2 (08:53→20:58)
[2019-10-11] MEDS ORDERED: sitaGLIPtin 100 MG TABLET PO SCH (09:00)
[2019-10-11] MEDS ORDERED: [UNRECOGNIZED DRUG - OTHER] SC SCH (09:00)
[2019-10-11] MEDS ORDERED: MULTIVIT,THER IRON,CA,FA & MIN 1 TABLET PO SCH (09:00)
[2019-10-11] MEDS ORDERED: LIRAGLUTIDE SC SCH (09:00)
[2019-10-11] MEDS ORDERED: ceFAZolin 1 GM VIAL IV SCH ×2 (09:00→14:00)
[2019-10-11] MEDS ORDERED: CLOPIDOGREL 75 MG TABLET PO SCH (09:00)
[2019-10-11] MEDS ORDERED: ESCITALOPRAM 20 MG TABLET PO SCH (09:00)
[2019-10-11] MEDS: VANCOMYCIN 1,500 MG in 0.9 % SODIUM CHLORIDE 500 ML IV SCH (09:48)
--- NOTE | 2019-10-11 09:50 | Internal Med Progress Note ---
Medical - PN: Subj Patient information: Note initiated : 10/11/19 at 9:48 am Service Date, if different from initiated Date: [] Patient: Kait Tolentino a 53 y/o F admitted on 10/09/19 for Abdominal Discomfort, Abscesses to RLE, Fever. Chief Complaint: [] Interval history: Ms. Tolentino is a 53 year old F with known history of diabetes/morbidly obese with BMI >65/hypertension and history of TIA who presents with shaking chills fever along with lower abdominal pain. Patient symptoms have progressed over the last few days. She has had recurrent boils around the inside and back of the thigh area. She was treated for the same at [facility] in March and underwent incision and drainage of groin abscess. For the last couple days she has had increasing malaise/fever/chills and lack of appetite. She noticed a couple of boils started draining. She presents today to the ER along with her Duglas. Initial work-up was consistent with severe sepsis with a fever 103 tachycardia tachypnea and medial thigh boils with active drainage. CT abdomen was unremarkable. Thigh ultrasound pending. Hospitalist service was consulted for admission. At the time of evaluation patient is alert but anxious. She is febrile at 101.4. She received 1 dose of Rocephin. She denies change medication. Her blood sugars has not been optimally controlled recently. She denies smoking or alcoholism. She carries a history of MRSA and recurrent boils. She denies diarrhea, dysuria, headache, photophobia but endorses to myalgias. 10/10-patient doing well. Fever defervesced. Minimal pain diarrhea. By ultrasound today. Continuing antibiotic coverage. White count 6000. Tachycardia improved. Blood sugars around goal. Creatinine 1.3. Continue holding RADHA inhibitors. Diabetic diet 10/11-patient doing well. T-max 102. Stable hemodynamics with white count 6000. Surgery on board. Will undergo incision drainage today. Continue antibiotic coverage. MRSA on cultures. De-escalate antibiotics. Family at [facility]. Addressed concerns and answered questions. No concerns expressed by nursing staff. - Constitutional Vitals: Vital Signs Temp Pulse Resp BP Pulse Ox 98.2 F 88 15 113/58 99 10/11/19 09:47 10/11/19 08:38 10/11/19 09:47 10/11/19 09:01 10/11/19 08:38 Period Temp Pulse Resp BP Sys/Jay Pulse Ox Last 24 Hr 97.5 F-100.4 F 78-95 12-28 96-139/48-79 84-100 Intake and Output 10/10/19 10/11/19 10/11/19 21:59 05:59 13:59 Intake Total 4500 615 50 Output Total 1105 275 80 Balance 3395 340 -30 Weight 371 lb 12.8 oz Intake & Output: Intake & Output 10/10/19 10/11/19 10/11/19 21:59 05:59 13:59 Intake Total 4500 615 50 Output Total 1105 275 80 Balance 3395 340 -30 Weight 371 lb 12.8 oz Intake: IV 3100 615 50 Sodium Chloride 0.9% 1,000 ml @ 3000 Wide Open IV BOLUS [facility] Rx#: [id number] Zosyn 3.375 gm In Dextrose 5% 100 50 50 in Water 50 ml @ 100 mls/hr IV Q6H [facility] Rx#:[id number] Vancomycin 1,500 mg In Sodium 500 Chloride 0.9% 500 ml @ 333.3 mls/hr IV Q12H [facility] Rx#: [id number] Oral 1400 Output: Urine Catheter Amount 1105 275 80 Other: Meal Dinner Percent of Meal Consumed 75% Urine Appearance Clear Uretheral ([place]) Clear Clear Urine Color Bright Yellow Bright Yellow Uretheral ([place]) Bright Yellow Bright Yellow Urine Odor Normal General appearance: morbidly obese Exam: Nonlabored breathing No telemetry events No anxiety Erythema/discharge right medial posterior thigh Medical - PN: Obj Da - Labs CBC & Chem 7: 10/11/19 04:15 10/11/19 04:15 Labs: Abnormal Lab Results 10/11/19 10/11/19 10/11/19 08:13 04:15 04:15 RBC Hgb Hct POC Hct MPV Gran % Lymph % (Auto) Lymph # (Auto) Eosinophils % (Manual) Myelocytes % ESR PT 14.8 H INR 1.2 H APTT 39 H Carbon Dioxide 19 L Creatinine 1.4 H POC Creatinine Glucose 162 H POC Glucose Uric Acid Calcium 8.3 L POC WB Ioniz Calcium C-Reactive Protein Albumin 3.0 L Globulin 3.8 H Albumin/Globulin Ratio 0.8 L Triglycerides 178 H Vancomycin Trough 29.6 H* 10/11/19 10/10/19 10/10/19 04:15 04:15 04:15 RBC 3.33 L 3.38 L Hgb 9.9 L 10.1 L Hct 29.9 L 30.5 L POC Hct MPV 7.2 L 7.2 L Gran % Lymph % (Auto) Lymph # (Auto) Eosinophils % (Manual) 12 H Myelocytes % 1 H ESR PT INR APTT Carbon Dioxide 20 L Creatinine 1.3 H POC Creatinine Glucose 138 H POC Glucose Uric Acid 8.4 H Calcium 8.5 L POC WB Ioniz Calcium C-Reactive Protein Albumin Globulin 3.8 H Albumin/Globulin Ratio 0.8 L Triglycerides Vancomycin Trough 10/09/19 10/09/19 10/09/19 14:50 14:50 14:50 RBC 3.60 L Hgb 10.6 L Hct 32.1 L POC Hct MPV 7.1 L Gran % 86.5 H Lymph % (Auto) 7.7 L Lymph # (Auto) 0.5 L Eosinophils % (Manual) Myelocytes % ESR 104 H PT INR APTT Carbon Dioxide Creatinine POC Creatinine Glucose POC Glucose Uric Acid Calcium POC WB Ioniz Calcium C-Reactive Protein 10.5 H Albumin Globulin Albumin/Globulin Ratio Triglycerides Vancomycin Trough 10/09/19 14:50 RBC Hgb Hct POC Hct 32.0 L MPV Gran % Lymph % (Auto) Lymph # (Auto) Eosinophils % (Manual) Myelocytes % ESR PT INR APTT Carbon Dioxide 21 L Creatinine POC Creatinine 1.2 H Glucose 150 H POC Glucose 149 H Uric Acid Calcium POC WB Ioniz Calcium 1.15 L C-Reactive Protein Albumin Globulin 3.9 H Albumin/Globulin Ratio 0.9 L Triglycerides Vancomycin Trough Meds: Medications Acetaminophen (Tylenol) 650 mg PO Q4-6HP PRN; Protocol PRN Reason: Per Pain Protocol/Fever > 101 Hydrocodone Bitart/Acetaminophen ([place] 5/325mg) 0 tab PO Q4HP PRN; Protocol PRN Reason: Per Pain Protocol Last Admin: 10/10/19 23:29 Dose: 2 tab Documented by: Atorvastatin Calcium (Lipitor) 40 mg PO HS [facility] Last Admin: 10/10/19 20:27 Dose: 40 mg Documented by: Bacitracin (Bacitracin Topical Oint) 1 dose TOPICAL TID [facility] Last Admin: 10/10/19 20:27 Dose: 1 dose Documented by: Cefazolin Sodium (Ancef) 2 gm IV Q8H [facility] Clopidogrel Bisulfate (Plavix) 75 mg PO DAILY [facility] Last Admin: 10/11/19 08:57 Dose: Not Given Documented by: Dextrose (Dextrose 50%) 0 ml IV UD PRN PRN Reason: Hypoglycemia Diagnostic Test (Pha) (Accu-Chek) 1 each FS ACHS [facility] Last Admin: 10/11/19 08:10 Dose: 1 each Documented by: Diazepam (Valium) 2 mg PO DAILYP PRN PRN Reason: Anxiety Docusate Sodium (Colace) 100 mg PO BID [facility] Last Admin: 10/11/19 08:53 Dose: Not Given Documented by: Duloxetine HCl (Cymbalta) 30 mg PO HS [facility] Last Admin: 10/10/19 20:28 Dose: 30 mg Documented by: Escitalopram Oxalate (Lexapro) 20 mg PO DAILY [facility] Last Admin: 10/11/19 08:53 Dose: Not Given Documented by: Furosemide (Lasix) 20 mg IV BIDD [facility] Last Admin: 10/10/19 15:31 Dose: 20 mg Documented by: Glucose (Insta-Glucose) 15 gm PO PRN PRN PRN Reason: Hypoglycemia Heparin Sodium (Porcine) (Heparin) 5,000 unit SQ Q12 [facility] Last Admin: 10/11/19 08:53 Dose: Not Given Documented by: Hydralazine HCl (Apresoline) 10 mg IV Q4-6HP PRN PRN Reason: Hypertension Magnesium Sulfate (Magnesium Sulfate) 2 gm in 50 mls @ 50 mls/hr IV UD PRN PRN Reason: MG = or < 1.7 Acetaminophen (Ofirmev) 650 mg in 65 mls @ 130 mls/hr IV Q6HP PRN; Protocol PRN Reason: Per Pain Protocol/Fever > 101 Last Infusion: 10/11/19 00:33 Dose: Infused Documented by: Sodium Chloride (Sodium Chloride 0.9%) 1,000 mls @ 0 mls/hr IV BOLUS [facility] Last Infusion: 10/10/19 16:21 Dose: Infused Documented by: Norepinephrine Bitartrate 16 (mg/ Sodium Chloride) 250 mls @ 9.375 mls/hr IV Q24HP PRN; Protocol PRN Reason: TITRATE TO KEEP MAP > 65 Sodium Chloride (Sodium Chloride 0.9%) 250 mls @ 20 mls/hr IV .[id number] [facility] Last Admin: 10/11/19 05:26 Dose: Not Given Documented by: Insulin Glargine (Lantus) 35 unit SQ [facility] Last Admin: 10/10/19 20:29 Dose: 35 unit Documented by: Insulin Human Lispro (Humalog) [address] [facility]; Protocol Last Admin: 10/11/19 08:45 Dose: Not Given Documented by: Iron Carb/Multivit/Battery [employer] Plastic/Folic Acid (Multivitamin W/Minerals) 1 tab PO DAILY [facility] Last Admin: 10/11/19 08:54 Dose: Not Given Documented by: Loperamide HCl (Imodium) 4 mg PO BIDP PRN PRN Reason: Diarrhea Magnesium Hydroxide (Milk Of Magnesia) 30 ml PO HSP PRN PRN Reason: Constipation Melatonin (Melatonin 3mg Tablet) 3 mg PO HSP PRN PRN Reason: Insomnia Ondansetron HCl (Zofran) 4 mg IV Q4-6HP PRN; Protocol PRN Reason: Nausea And Vomiting Victoza 2-Wil 1.8 Mg (Sc Daily) 1 dose SC DAILY [facility] Last Admin: 10/11/19 08:56 Dose: Not Given Documented by: Polyethylene Glycol (Miralax) 17 gm PO DAILYP PRN PRN Reason: Constipation Potassium Chloride (Klor-Con) 40 meq PO DAILYP PRN PRN Reason: K+ < 3.5 Potassium Chloride (Kdur) 10 meq PO QAMCC [facility] Last Admin: 10/11/19 08:47 Dose: Not Given Documented by: Prazosin HCl (Minipress) 1 mg PO [facility] Last Admin: 10/10/19 20:27 Dose: 1 mg Documented by: Senna/Docusate Sodium (Senna Plus Tablet) 1 tab PO [facility] Last Admin: 10/10/19 20:28 Dose: 1 tab Documented by: Sitagliptin Phosphate (Januvia) 100 mg PO DAILY [facility] Last Admin: 10/11/19 08:53 Dose: Not Given Documented by: Sodium Chloride (Saline Flush) 10 ml IV Q8 [facility] Last Admin: 10/11/19 05:39 Dose: 10 ml Documented by: Topiramate (Topamax) 150 mg PO BID [facility] Last Admin: 10/10/19 20:28 Dose: 150 mg Documented by: Vancomycin HCl (Vancomycin Per Pharmacy) 1 order IV UD [facility]; Protocol Medical - PN: A/P - Time Spent With Patient Total time spent is greater than 50% in coordination of care (as documented) at patient's floor/unit and/or counseling patient: 25 - 35 minutes (1) Abscess or cellulitis of thigh Status: Acute Assessment and plan: * Cellulitis with furunculosis/abscess medial and posterior R thigh, cultures positive MRSA, surgery on board. Will undergo I&D today * Early sepsis-clinically improved * DM type II-basal prandial insulin, CC diet, optimize blood sugar control * Mild BANG with creatinine 1.3. Continue antihypertensives on hold * Morbid obesity-frequent turning/perineal care/nutrition consult * Hypertension hold RADHA inhibitor until systolics stabilizes * History of TIA continue Plavix statin * Hyperlipidemia continue statin * Anxiety disorder continue diazepam/Cymbalta * Full code * Prophylaxis heparin Plan * De-escalate antibiotics * Review postprocedure * Continue monitoring renal function * Prior medical condition management on home meds * PT OT nutrition support * Discharge planning Current Visit: Yes Medical - PN: Qual - VTE Deep Vein Thrombosis/Pulmonary Embolism Present on Admission: No
[2019-10-11] MEDS: BACITRACIN TOPICAL OINT 15 GM TUBE TOPICAL SCH ×3 (09:53→15:35)
[2019-10-11] MEDS: FUROSEMIDE 40 MG/4 ML VIAL IV SCH ×2 (09:54→09:55)
[2019-10-11] MEDS: TOPIRAMATE 100 MG TABLET PO SCH ×2 (09:54→20:55)
[2019-10-11] MEDS: HYDROcodone/APAP 5/325MG TABLET PO PRN ×2 (09:59→17:43)
[2019-10-11] MEDS ORDERED: fentaNYL 100 MCG/2 ML VIAL IV ONE (12:06)
[2019-10-11] MEDS ORDERED: DEXAMETHASONE 10 MG/ML VIAL IV ONE (12:06)
[2019-10-11] MEDS ORDERED: LIDOCAINE HCL/PF 100 MG/5 ML SYRINGE IV ONE (12:06)
[2019-10-11] MEDS ORDERED: ONDANSETRON 4 MG/2 ML VIAL IV ONE (12:06)
[2019-10-11] MEDS ORDERED: SUCCINYLCHOLINE 20 MG/ML ML IV ONE (12:06)
[2019-10-11] MEDS ORDERED: MIDAZOLAM 5 MG/5 ML VIAL IV ONE (12:06)
[2019-10-11] MEDS ORDERED: PROPOFOL 200 MG/20 ML VIAL IV ONE (12:06)
--- NOTE | 2019-10-11 13:23 | Brief Operative Note ---
Date of procedure: 10/11/19 Pre-op diagnosis: bilateral thigh abscesses Post-op diagnosis: other (bilateral thigh abscesses) Procedure: excisional debridement of bilateral thigh abscesses Grafts/Implants: No Anesthesia: GETA Findings: 3 abscesses of medial thigh left 2 large abscesses of posterior thigh (right ) Complications: none Surgeon: Katalina Skinner Estimated blood loss (cc): 20 Specimens Removed/Pathology: none sent Condition: stable Disposition: PACU
[2019-10-11] MEDS ORDERED: MEPERIDINE 25 MG/ML SYRINGE IV PRN (13:28)
[2019-10-11] MEDS ORDERED: FLUMAZENIL 0.1 MG/ML ML IV PRN (13:28)
[2019-10-11] MEDS ORDERED: ACETAMINOPHEN 1,000 MG/100 ML BOTTLE IV ONE (13:28)
[2019-10-11] MEDS ORDERED: NALOXONE HCL 0.4 MG/ML VIAL IV PRN (13:28)
[2019-10-11] MEDS ORDERED: HYDROmorphone 2 MG/ML VIAL IV PRN (13:28)
[2019-10-11] MEDS ORDERED: ATROPINE SULFATE 0.4 MG/ML VIAL IV PRN (13:28)
[2019-10-11] MEDS ORDERED: diphenhydrAMINE 50 MG/ML VIAL IV PRN (13:28)
[2019-10-11] MEDS ORDERED: IPRATROPIUM/ALBUTEROL 3 ML AMPUL.NEB NEB PRN (13:28)
[2019-10-11] MEDS ORDERED: ePHEDrine 50 MG/ML AMPUL IV PRN (13:28)
[2019-10-11] MEDS ORDERED: LACTATED RINGERS 1,000 ML IV SCH (13:30)
[2019-10-11] MEDS: fentaNYL 100 MCG/2 ML VIAL IV PRN ×3 (13:35→13:49)
[2019-10-11] MEDS ORDERED: VANCOMYCIN PER PHARMACY IV SCH (14:40)
[2019-10-11] MEDS ORDERED: LOPERAMIDE 2 MG CAPSULE PO PRN (14:40)
[2019-10-11] MEDS ORDERED: DEXTROSE 31 GM ORAL.SUSP PO PRN (14:40)
[2019-10-11] MEDS ORDERED: hydrALAZINE 20 MG/ML VIAL IV PRN (14:40)
[2019-10-11] MEDS ORDERED: POLYETHYLENE GLYCOL 3350 17 GM PACKET PO PRN (14:40)
[2019-10-11] MEDS ORDERED: DIAZEPAM 2 MG TABLET PO PRN (14:40)
[2019-10-11] MEDS ORDERED: ACETAMINOPHEN 325 MG TABLET PO PRN (14:40)
[2019-10-11] MEDS ORDERED: POTASSIUM CHLORIDE 20 MEQ PACKET PO PRN (14:40)
[2019-10-11] MEDS ORDERED: ONDANSETRON 4 MG/2 ML VIAL IV PRN (14:40)
[2019-10-11] MEDS ORDERED: NOREPINEPHRINE BITARTRATE 16 MG in 0.9 % SODIUM CHLORIDE 234 ML IV PRN (14:40)
[2019-10-11] MEDS ORDERED: MAGNESIUM SULFATE 2 GM/50 ML BAG IV PRN (14:40)
[2019-10-11] MEDS ORDERED: DEXTROSE 50% 50 ML VIAL IV PRN (14:40)
[2019-10-11] MEDS ORDERED: ACETAMINOPHEN 650 MG/65 ML BOTTLE IV PRN (14:40)
[2019-10-11] MEDS ORDERED: MAGNESIUM HYDROXIDE 30 ML ORAL.SUSP PO PRN (14:40)
[2019-10-11] MEDS: 0.9 % SODIUM CHLORIDE 1,000 ML IV SCH (15:01)
[2019-10-11] MEDS: ceFAZolin 1 GM VIAL IV SCH (20:58)
[2019-10-11] MEDS ORDERED: DULoxetine 30 MG CAPSULE PO SCH (21:00)
[2019-10-11] MEDS ORDERED: MELATONIN 3 MG TABLET PO PRN (21:00)
[2019-10-11] MEDS ORDERED: PRAZOSIN 1 MG CAPSULE PO SCH (21:00)
[2019-10-11] MEDS ORDERED: INSULIN GLARGINE, HUMAN 1 UNIT/0.01 ML SQ SCH (21:00)
[2019-10-11] MEDS ORDERED: ATORVASTATIN 40 MG TABLET PO SCH (21:00)
[2019-10-11] MEDS ORDERED: SENNOSIDES/DOCUSATE SODIUM 1 TAB TABLET PO SCH (21:00)
[2019-10-12] MEDS: HYDROcodone/APAP 5/325MG TABLET PO PRN ×4 (00:49→23:06)
[2019-10-12] MEDS: 0.9 % SODIUM CHLORIDE 250 ML IV SCH (04:04)
[2019-10-12 05:31] LABS: Hematocrit 26.6 % (36.0-48.0); Hemoglobin 8.9 g/dL (12.0-15.0); Mean Cell Volume 89.8 fL (80.0-100.0); Mean Corpuscular HGB Conc 33.3 g/dL (31.0-36.0); Mean Platelet Volume 7.7 fL (7.4-10.4); Platelet Count 227 K/mcL (140-440); RBC 2.96 M/mcL (4.00-5.20); WBC 4.9 K/mcL (4.5-11.0)
[2019-10-12] MEDS: ceFAZolin 1 GM VIAL IV SCH (05:39)
[2019-10-12] MEDS: 0.9 % SODIUM CHLORIDE 10 ML SYRINGE IV SCH ×3 (05:40→20:46)
[2019-10-12 05:48] LABS: ALT/SGPT 8 U/l (0-40); AST/SGOT 9 U/l (0-37); Albumin 2.9 gm/dL (3.2-5.2); Albumin/Globulin Ratio 0.8 (1.0-2.3); Alkaline Phosphatase 83 U/L (39-117); Bilirubin,Direct < 0.2 mg/dL (0.0-0.3); Bilirubin,Total < 0.2 mg/dL (0.0-1.0); Blood Urea Nitrogen 18 mg/dl (6-20); Calcium 8.3 mg/dl (8.6-10.4); Carbon Dioxide 20 mmol/L (22-30); Chloride 104 mmol/L (96-108); Globulin 3.7 gm/dL (2.2-3.7); Glomerular Filtration Rate 52; Glucose 275 mg/dL (70-105); Lactate Dehydrogenase 162 U/L (94-250); Phosphorous 3.1 mg/dL (2.7-4.5); Triglycerides 140 mg/dl (<150); Uric Acid 6.9 mg/dL (2.5-8.0)
[2019-10-12 06:55] LABS: Band Neutrophils % 18 % (0-10); Lymphocytes % 14 % (15-49); Monocytes % (Manual) 4 % (1-12); Platelet Estimate NORMAL (NORMAL); Polychromasia 1+ (NONE SEEN); RBC Morphology ABNORM (NORMAL); Segmented Neutrophils % 64 % (38-78)
[2019-10-12] MEDS ORDERED: POTASSIUM CHLORIDE 10 MEQ TABLET PO SCH (08:00)
[2019-10-12] MEDS: DOCUSATE SODIUM 100 MG CAPSULE PO SCH ×2 (08:57→20:45)
[2019-10-12] MEDS: INSULIN LISPRO 1 UNIT/0.01 ML UNIT SQ SCH ×4 (08:57→20:43)
[2019-10-12] MEDS ORDERED: MULTIVIT,THER IRON,CA,FA & MIN 1 TABLET PO SCH (09:00)
[2019-10-12] MEDS ORDERED: sitaGLIPtin 100 MG TABLET PO SCH (09:00)
[2019-10-12] MEDS ORDERED: LINEZOLID 600 MG TABLET PO SCH (09:00)
[2019-10-12] MEDS ORDERED: CLOPIDOGREL 75 MG TABLET PO SCH (09:00)
[2019-10-12] MEDS ORDERED: LIRAGLUTIDE SC SCH (09:00)
[2019-10-12] MEDS ORDERED: [UNRECOGNIZED DRUG - OTHER] SC SCH (09:00)
[2019-10-12] MEDS ORDERED: ESCITALOPRAM 20 MG TABLET PO SCH (09:00)
[2019-10-12 09:01] LABS: Vancomycin,Random 13.6 ug/mL
--- NOTE | 2019-10-12 09:27 | Internal Med Progress Note ---
Medical - PN: Subj Patient information: Note initiated : 10/12/19 at 9:25 am Service Date, if different from initiated Date: [] Patient: Kait Tolentino a 53 y/o F admitted on 10/09/19 for Abdominal Discomfort, Abscesses to RLE, Fever. Chief Complaint: [] Interval history: Ms. Tolentino is a 53 year old F with known history of diabetes/morbidly obese with BMI >65/hypertension and history of TIA who presents with shaking chills fever along with lower abdominal pain. Patient symptoms have progressed over the last few days. She has had recurrent boils around the inside and back of the thigh area. She was treated for the same at [facility] in March and underwent incision and drainage of groin abscess. For the last couple days she has had increasing malaise/fever/chills and lack of appetite. She noticed a couple of boils started draining. She presents today to the ER along with her Duglas. Initial work-up was consistent with severe sepsis with a fever 103 tachycardia tachypnea and medial thigh boils with active drainage. CT abdomen was unremarkable. Thigh ultrasound pending. Hospitalist service was consulted for admission. At the time of evaluation patient is alert but anxious. She is febrile at 101.4. She received 1 dose of Rocephin. She denies change medication. Her blood sugars has not been optimally controlled recently. She denies smoking or alcoholism. She carries a history of MRSA and recurrent boils. She denies diarrhea, dysuria, headache, photophobia but endorses to myalgias. 10/10-patient doing well. Fever defervesced. Minimal pain diarrhea. By ultrasound today. Continuing antibiotic coverage. White count 6000. Tachycardia improved. Blood sugars around goal. Creatinine 1.3. Continue holding RADHA inhibitors. Diabetic diet 10/11-patient doing well. T-max 102. Stable hemodynamics with white count 6000. Surgery on board. Will undergo incision drainage today. Continue antibiotic coverage. MRSA on cultures. De-escalate antibiotics. Family at [facility]. Addressed concerns and answered questions. No concerns expressed by nursing staff. 10/12-patient doing well. Status post excisional debridement of bilateral thigh abscess by surgery. On Zyvox for MRSA. No overnight fever chills. Stable hemodynamics. Transferring to medical floor. Will possibly discharge in 24 to 48 hours pending therapy evaluation. - Constitutional Vitals: Vital Signs Temp Pulse Resp BP Pulse Ox 97.3 F 80 15 123/57 99 10/12/19 05:32 10/12/19 04:07 10/12/19 05:32 10/12/19 05:01 10/12/19 05:01 Period Temp Pulse Resp BP Sys/Jay Pulse Ox Last 24 Hr 97.2 F-98.8 F 79-144 13-34 110-152/41-111 79-100 Intake and Output 10/11/19 10/12/19 10/12/19 21:59 05:59 13:59 Intake Total 740 400 Output Total 580 640 Balance 160 -240 Weight 381 lb 9.6 oz Intake & Output: Intake & Output 10/11/19 10/12/19 10/12/19 21:59 05:59 13:59 Intake Total 740 400 Output Total 580 640 Balance 160 -240 Weight 381 lb 9.6 oz Intake: IV 140 Lactated Ringers 1,000 ml @ 20 40 mls/hr IV .Q24H [facility] Rx#: [id number] Oral 600 400 Output: Urine Catheter Amount 580 640 Other: Meal Dinner Tuna fish sandwich Percent of Meal Consumed 100% 100% Feeding Ability Independent Urine Appearance Uretheral ([place]) Clear Clear Urine Color Uretheral ([place]) Bright Yellow Bright Yellow Stool Size Large Stool Color Brown Stool Consistency Loose General appearance: morbidly obese Exam: No telemetry events Nonlabored breathing No anxiety Medical - PN: Obj Da - Labs CBC & Chem 7: 10/12/19 04:05 10/12/19 04:05 Labs: Abnormal Lab Results 10/12/19 10/12/19 10/11/19 04:05 04:05 08:13 RBC 2.96 L Hgb 8.9 L Hct 26.6 L POC Hct MPV Gran % Lymph % (Auto) Lymph # (Auto) Band Neutrophils % 18 H Lymphocytes % 14 L Eosinophils % (Manual) Myelocytes % RBC Morphology Abnorm A Polychromasia 1+ A ESR PT INR APTT Carbon Dioxide 20 L Creatinine 1.2 H POC Creatinine Glucose 275 H POC Glucose Uric Acid Calcium 8.3 L POC WB Ioniz Calcium C-Reactive Protein Albumin 2.9 L Globulin Albumin/Globulin Ratio 0.8 L Triglycerides Vancomycin Trough 29.6 H* 10/11/19 10/11/19 10/11/19 04:15 04:15 04:15 RBC 3.33 L Hgb 9.9 L Hct 29.9 L POC Hct MPV 7.2 L Gran % Lymph % (Auto) Lymph # (Auto) Band Neutrophils % Lymphocytes % Eosinophils % (Manual) 12 H Myelocytes % RBC Morphology Polychromasia ESR PT 14.8 H INR 1.2 H APTT 39 H Carbon Dioxide 19 L Creatinine 1.4 H POC Creatinine Glucose 162 H POC Glucose Uric Acid Calcium 8.3 L POC WB Ioniz Calcium C-Reactive Protein Albumin 3.0 L Globulin 3.8 H Albumin/Globulin Ratio 0.8 L Triglycerides 178 H Vancomycin Trough 10/10/19 10/10/19 10/09/19 04:15 04:15 14:50 RBC 3.38 L Hgb 10.1 L Hct 30.5 L POC Hct MPV 7.2 L Gran % Lymph % (Auto) Lymph # (Auto) Band Neutrophils % Lymphocytes % Eosinophils % (Manual) Myelocytes % 1 H RBC Morphology Polychromasia ESR PT INR APTT Carbon Dioxide 20 L Creatinine 1.3 H POC Creatinine Glucose 138 H POC Glucose Uric Acid 8.4 H Calcium 8.5 L POC WB Ioniz Calcium C-Reactive Protein 10.5 H Albumin Globulin 3.8 H Albumin/Globulin Ratio 0.8 L Triglycerides Vancomycin Trough 10/09/19 10/09/19 10/09/19 14:50 14:50 14:50 RBC 3.60 L Hgb 10.6 L Hct 32.1 L POC Hct 32.0 L MPV 7.1 L Gran % 86.5 H Lymph % (Auto) 7.7 L Lymph # (Auto) 0.5 L Band Neutrophils % Lymphocytes % Eosinophils % (Manual) Myelocytes % RBC Morphology Polychromasia ESR 104 H PT INR APTT Carbon Dioxide 21 L Creatinine POC Creatinine 1.2 H Glucose 150 H POC Glucose 149 H Uric Acid Calcium POC WB Ioniz Calcium 1.15 L C-Reactive Protein Albumin Globulin 3.9 H Albumin/Globulin Ratio 0.9 L Triglycerides Vancomycin Trough Meds: Medications Acetaminophen (Tylenol) 650 mg PO Q4-6HP PRN; Protocol PRN Reason: Per Pain Protocol/Fever > 101 Hydrocodone Bitart/Acetaminophen ([place] 5/325mg) 0 tab PO Q4HP PRN; Protocol PRN Reason: Per Pain Protocol Last Admin: 10/12/19 00:49 Dose: 2 tab Documented by: Atorvastatin Calcium (Lipitor) 40 mg PO [facility] Last Admin: 10/11/19 20:57 Dose: 40 mg Documented by: Clopidogrel Bisulfate (Plavix) 75 mg PO DAILY [facility] Last Admin: 10/12/19 08:57 Dose: 75 mg Documented by: Dextrose (Dextrose 50%) 0 ml IV UD PRN PRN Reason: Hypoglycemia Diagnostic Test (Pha) (Accu-Chek) 1 each FS [facility] Last Admin: 10/12/19 08:57 Dose: 1 each Documented by: Diazepam (Valium) 2 mg PO DAILYP PRN PRN Reason: Anxiety Docusate Sodium (Colace) 100 mg PO BID [facility] Last Admin: 10/12/19 08:57 Dose: 100 mg Documented by: Duloxetine HCl (Cymbalta) 30 mg PO [facility] Last Admin: 10/11/19 20:55 Dose: 30 mg Documented by: Escitalopram Oxalate (Lexapro) 20 mg PO DAILY [facility] Glucose (Insta-Glucose) 15 gm PO PRN PRN PRN Reason: Hypoglycemia Hydralazine HCl (Apresoline) 10 mg IV Q4-6HP PRN PRN Reason: Hypertension Magnesium Sulfate (Magnesium Sulfate) 2 gm in 50 mls @ 50 mls/hr IV UD PRN PRN Reason: MG = or < 1.7 Norepinephrine Bitartrate 16 (mg/ Sodium Chloride) 250 mls @ 9.375 mls/hr IV Q24HP PRN; Protocol PRN Reason: TITRATE TO KEEP MAP > 65 Acetaminophen (Ofirmev) 650 mg in 65 mls @ 130 mls/hr IV Q6HP PRN; Protocol PRN Reason: Per Pain Protocol/Fever > 101 Sodium Chloride (Sodium Chloride 0.9%) 250 mls @ 20 mls/hr IV .[id number] [facility] Last Admin: 10/12/19 04:04 Dose: Not Given Documented by: Insulin Glargine (Lantus) 35 unit SQ [facility] Last Admin: 10/11/19 20:56 Dose: 35 units Documented by: Insulin Human Lispro (Humalog) 0 unit SQ [facility]; Protocol Last Admin: 10/12/19 08:57 Dose: 3 units Documented by: Iron Carb/Multivit/Substance Abuse Services Director/Folic Acid (Multivitamin W/Minerals) 1 tab PO DAILY [facility] Last Admin: 10/12/19 08:58 Dose: 1 tab Documented by: Linezolid (Zyvox) 600 mg PO Q12 [facility]; Protocol Loperamide HCl (Imodium) 4 mg PO BIDP PRN PRN Reason: Diarrhea Magnesium Hydroxide (Milk Of Magnesia) 30 ml PO HSP PRN PRN Reason: Constipation Melatonin (Melatonin 3mg Tablet) 3 mg PO HSP PRN PRN Reason: Insomnia Ondansetron HCl (Zofran) 4 mg IV Q4-6HP PRN; Protocol PRN Reason: Nausea And Vomiting Victoza 2-Wil 1.8 Mg (Sc Daily) 1 dose SC DAILY [facility] Last Admin: 10/12/19 08:58 Dose: 1 dose Documented by: Polyethylene Glycol (Miralax) 17 gm PO DAILYP PRN PRN Reason: Constipation Potassium Chloride (Klor-Con) 40 meq PO DAILYP PRN PRN Reason: K+ < 3.5 Potassium Chloride (Kdur) [facility] Last Admin: 10/12/19 08:58 Dose: 10 meq Documented by: Prazosin HCl (Minipress) 1 mg PO [facility] Last Admin: 10/11/19 20:55 Dose: 1 mg Documented by: Senna/Docusate Sodium (Senna Plus Tablet) 1 tab PO [facility] Last Admin: 10/11/19 20:58 Dose: 1 tab Documented by: Sitagliptin Phosphate (Januvia) 100 mg PO DAILY [facility] Sodium Chloride (Saline Flush) 10 ml IV Q8 [facility] Last Admin: 10/12/19 05:40 Dose: 10 ml Documented by: Topiramate (Topamax) 150 mg PO BID [facility] Last Admin: 10/11/19 20:55 Dose: 150 mg Documented by: Medical - PN: A/P - Time Spent With Patient Total time spent is greater than 50% in coordination of care (as documented) at patient's floor/unit and/or counseling patient: 25 - 35 minutes (1) Abscess or cellulitis of thigh Status: Acute Assessment and plan: * Cellulitis with furunculosis/abscess medial and posterior R and left thigh, cultures positive MRSA, status post incision debridement by surgery. Continue IV vancomycin * Early sepsis-clinically resolved * DM type II-basal prandial insulin, CC diet, improved blood sugar * Mild BANG -improving * Morbid obesity-frequent turning/perineal care/nutrition consult * Hypertension hold RADHA inhibitor until systolics stabilizes * History of TIA continue Plavix statin * Hyperlipidemia continue statin * Anxiety disorder continue diazepam/Cymbalta * Full code * Prophylaxis heparin Plan * De-escalate antibiotics to IV vancomycin * Transfer to medical floor * Prior medical condition management on home meds * PT OT nutrition support * Discharge planning per case management Current Visit: Yes Medical - PN: Qual - VTE Deep Vein Thrombosis/Pulmonary Embolism Present on Admission: No
[2019-10-12] MEDS ORDERED: VANCOMYCIN PER PHARMACY IV ONE (09:31)
[2019-10-12] MEDS: TOPIRAMATE 100 MG TABLET PO SCH ×2 (10:00→20:28)
[2019-10-12] MEDS ORDERED: MAGNESIUM SULFATE 2 GM/50 ML BAG IV PRN (10:05)
[2019-10-12] MEDS ORDERED: DEXTROSE 50% 50 ML VIAL IV PRN (10:05)
[2019-10-12] MEDS ORDERED: DEXTROSE 31 GM ORAL.SUSP PO PRN (10:05)
[2019-10-12] MEDS ORDERED: LOPERAMIDE 2 MG CAPSULE PO PRN (10:05)
[2019-10-12] MEDS ORDERED: ACETAMINOPHEN 650 MG/65 ML BOTTLE IV PRN (10:05)
[2019-10-12] MEDS ORDERED: DIAZEPAM 2 MG TABLET PO PRN (10:05)
[2019-10-12] MEDS ORDERED: hydrALAZINE 20 MG/ML VIAL IV PRN (10:05)
[2019-10-12] MEDS ORDERED: POLYETHYLENE GLYCOL 3350 17 GM PACKET PO PRN (10:05)
[2019-10-12] MEDS ORDERED: ACETAMINOPHEN 325 MG TABLET PO PRN (10:05)
[2019-10-12] MEDS ORDERED: POTASSIUM CHLORIDE 20 MEQ PACKET PO PRN (10:05)
[2019-10-12] MEDS ORDERED: 0.9 % SODIUM CHLORIDE 250 ML IV SCH (10:05)
[2019-10-12] MEDS ORDERED: MELATONIN 3 MG TABLET PO PRN (10:05)
[2019-10-12] MEDS ORDERED: MAGNESIUM HYDROXIDE 30 ML ORAL.SUSP PO PRN (10:05)
[2019-10-12] MEDS ORDERED: ONDANSETRON 4 MG/2 ML VIAL IV PRN (10:05)
[2019-10-12] MEDS ORDERED: VANCOMYCIN PER PHARMACY IV SCH (10:30)
[2019-10-12] MEDS: VANCOMYCIN 1,500 MG in 0.9 % SODIUM CHLORIDE 500 ML IV SCH (11:59)
--- NOTE | 2019-10-12 14:10 | General Surgery Progress Note ---
Subjective Patient reports: feels better, pain is less, afebrile Narrative: Note initiated : 10/12/19 at 2:08 pm Service Date, if different from initiated Date: [] Patient: Kait Tolentino 53 y/o F admitted on 10/09/19 for Abdominal Discomfort, Abscesses to RLE, Fever. Chief Complaint: [patient states that she feels much better. She has only a moderate amount of pain when she rests her thighs against a chair or the c ommode. She has a small amount of bloody drainage. She is afebrile. Patient will be stable for follow-up as an outpatient in 24-48 hours as long as she has home health for wound care.] Objective Temp Pulse Resp BP Pulse Ox 97.9 F 89 16 148/82 100 10/12/19 12:00 10/12/19 12:00 10/12/19 12:00 10/12/19 12:00 10/12/19 12:00 - Additional Data Intake & Output - Last 24 hours: Intake & Output 10/10/19 10/11/19 10/12/19 10/13/19 05:59 05:59 05:59 05:59 Intake Total 4065 5855 1190 720 Output Total 2400 2680 1560 575 Balance 1665 3175 -370 145 Weight 372 lb 371 lb 12.8 oz 381 lb 9.6 oz - General physical appearance well developed, well nourished, no distress - Eyes PERRL, normal ocular movement - ENT normal pinna, normal nares, normal mucosa, no hearing loss, no congestion - Neck no masses, no bruits, trachea midline, no lymphadenopathy, no venous distension - Respiratory normal expansion, normal respiratory effort, clear to auscultation - Cardiovascular Cardiovascular exam: Present: normal rate and rhythm, RRR, +S1, +S2. Absent: JVD, tachycardia - Abdomen non tender, bowel sounds (present), surgical scars (none), masses (none) - Integumentary other (skin lesion on both thighs look significantly improved with small amount of bloody drainage) - Neurologic normal coordination, normal sensation - Musculoskeletal normal gait, normal posture - Psychiatric oriented to time, oriented to person, oriented to place, speech is normal, memory intact - Labs 10/12/19 04:05 10/12/19 04:05 Diabetes panel 10/12/19 Range/Units 04:05 Sodium 136 (133-145) mmol/L Potassium 4.0 (3.3-5.1) mmol/L Chloride 104 (96-108) mmol/L Carbon Dioxide 20 L (22-30) mmol/L BUN 18 (6-20) mg/dl Creatinine 1.2 H (0.6-1.1) mg/dl Glucose 275 H (70-105) mg/dL Calcium 8.3 L (8.6-10.4) mg/dl AST 9 (0-37) U/l ALT 8 (0-40) U/l Alkaline Phosphatase 83 (39-117) U/L Total Protein 6.6 (5.9-8.4) gm/dL Albumin 2.9 L (3.2-5.2) gm/dL Triglycerides 140 (<150) mg/dl Calcium panel 10/12/19 Range/Units 04:05 Calcium 8.3 L (8.6-10.4) mg/dl Phosphorus 3.1 (2.7-4.5) mg/dL Albumin 2.9 L (3.2-5.2) gm/dL Pituitary panel 10/12/19 Range/Units 04:05 Sodium 136 (133-145) mmol/L Potassium 4.0 (3.3-5.1) mmol/L Chloride 104 (96-108) mmol/L Carbon Dioxide 20 L (22-30) mmol/L BUN 18 (6-20) mg/dl Creatinine 1.2 H (0.6-1.1) mg/dl Glucose 275 H (70-105) mg/dL Calcium 8.3 L (8.6-10.4) mg/dl Adrenal panel 10/12/19 Range/Units 04:05 Sodium 136 (133-145) mmol/L Potassium 4.0 (3.3-5.1) mmol/L Chloride 104 (96-108) mmol/L Carbon Dioxide 20 L (22-30) mmol/L BUN 18 (6-20) mg/dl Creatinine 1.2 H (0.6-1.1) mg/dl Glucose 275 H (70-105) mg/dL Calcium 8.3 L (8.6-10.4) mg/dl Total Bilirubin < 0.2 (0.0-1.0) mg/dL AST 9 (0-37) U/l ALT 8 (0-40) U/l Alkaline Phosphatase 83 (39-117) U/L Total Protein 6.6 (5.9-8.4) gm/dL Albumin 2.9 L (3.2-5.2) gm/dL Assessment and Plan (1) Abscess of left thigh Status: Acute Assessment and plan: Continue present antibiotic therapy Change dressings as needed Stable for discharge home with home health when cleared by hospitalist. Current Visit: Yes (2) Abscess of right thigh Status: Acute Current Visit: Yes (3) Diabetes mellitus type 2 in obese Status: Acute Current Visit: Yes - Time Spent With Patient Total time spent is greater than 50% in coordination of care (as documented) at patient's floor/unit and/or counseling patient:
[2019-10-12] MEDS: HEPARIN 5,000 UNIT/ML VIAL SQ SCH (20:28)
[2019-10-12] MEDS: DULoxetine 30 MG CAPSULE PO SCH (20:28)
[2019-10-12] MEDS: SENNOSIDES/DOCUSATE SODIUM 1 TAB TABLET PO SCH (20:29)
[2019-10-12] MEDS: PRAZOSIN 1 MG CAPSULE PO SCH (20:29)
[2019-10-12] MEDS: INSULIN GLARGINE, HUMAN 1 UNIT/0.01 ML SQ SCH (20:44)
[2019-10-12] MEDS: ATORVASTATIN 40 MG TABLET PO SCH (20:46)
[2019-10-12] MEDS ORDERED: DULoxetine 30 MG CAPSULE PO SCH (21:00)
[2019-10-13] MEDS: HYDROcodone/APAP 5/325MG TABLET PO PRN ×4 (01:47→20:30)
[2019-10-13 05:25] LABS: Hemoglobin 8.3 g/dL (12.0-15.0); Mean Cell Volume 90.4 fL (80.0-100.0); Mean Platelet Volume 7.4 fL (7.4-10.4); Platelet Count 250 K/mcL (140-440); RBC 2.88 M/mcL (4.00-5.20); Red Cell Distribution Width 14.3 % (11.5-14.5); WBC 5.4 K/mcL (4.5-11.0)
[2019-10-13] MEDS: 0.9 % SODIUM CHLORIDE 10 ML SYRINGE IV SCH ×3 (05:55→20:30)
[2019-10-13 06:08] LABS: ALT/SGPT 9 U/l (0-40); AST/SGOT 9 U/l (0-37); Albumin 2.7 gm/dL (3.2-5.2); Albumin/Globulin Ratio 0.7 (1.0-2.3); Alkaline Phosphatase 77 U/L (39-117); Bilirubin,Direct < 0.2 mg/dL (0.0-0.3); Bilirubin,Total < 0.2 mg/dL (0.0-1.0); Blood Urea Nitrogen 19 mg/dl (6-20); Calcium 8.4 mg/dl (8.6-10.4); Carbon Dioxide 20 mmol/L (22-30); Globulin 3.7 gm/dL (2.2-3.7); Glomerular Filtration Rate 52; Glucose 148 mg/dL (70-105); Lactate Dehydrogenase 159 U/L (94-250); Phosphorous 3.5 mg/dL (2.7-4.5); Triglycerides 192 mg/dl (<150); Uric Acid 6.9 mg/dL (2.5-8.0)
[2019-10-13 06:09] LABS: Chloride 110 mmol/L (96-108)
[2019-10-13 06:23] LABS: Band Neutrophils % 1 % (0-10); Basophils % (Manual) 1 % (0-2); Eosinophils % (Manual) 5 % (0-7); Lymphocytes % 44 % (15-49); Monocytes % (Manual) 5 % (1-12); Platelet Estimate NORMAL (NORMAL); RBC Morphology NORMAL (NORMAL); Segmented Neutrophils % 44 % (38-78)
[2019-10-13] MEDS: INSULIN LISPRO 1 UNIT/0.01 ML UNIT SQ SCH ×4 (08:30→20:28)
[2019-10-13] MEDS: HEPARIN 5,000 UNIT/ML VIAL SQ SCH ×2 (09:24→20:28)
[2019-10-13] MEDS: TOPIRAMATE 100 MG TABLET PO SCH ×2 (09:25→20:29)
[2019-10-13] MEDS: sitaGLIPtin 100 MG TABLET PO SCH (09:26)
[2019-10-13] MEDS: POTASSIUM CHLORIDE 10 MEQ TABLET PO SCH (09:26)
[2019-10-13] MEDS: CLOPIDOGREL 75 MG TABLET PO SCH (09:26)
[2019-10-13] MEDS: ESCITALOPRAM 20 MG TABLET PO SCH (09:26)
--- NOTE | 2019-10-13 09:27 | Internal Med Progress Note ---
Medical - PN: Subj Patient information: Note initiated : 10/13/19 at 9:25 am Service Date, if different from initiated Date: [] Patient: Kait Tolentino a 53 y/o F admitted on 10/09/19 for Abdominal Discomfort, Abscesses to RLE, Fever. Chief Complaint: [] Interval history: Ms. Tolentino is a 53 year old F with known history of diabetes/morbidly obese with BMI >65/hypertension and history of TIA who presents with shaking chills fever along with lower abdominal pain. Patient symptoms have progressed over the last few days. She has had recurrent boils around the inside and back of the thigh area. She was treated for the same at [facility] in March and underwent incision and drainage of groin abscess. For the last couple days she has had increasing malaise/fever/chills and lack of appetite. She noticed a couple of boils started draining. She presents today to the ER along with her [place]. Initial work-up was consistent with severe sepsis with a fever 103 tachycardia tachypnea and medial thigh boils with active drainage. CT abdomen was unremarkable. Thigh ultrasound pending. Hospitalist service was consulted for admission. At the time of evaluation patient is alert but anxious. She is febrile at 101.4. She received 1 dose of Rocephin. She denies change medication. Her blood sugars has not been optimally controlled recently. She denies smoking or alcoholism. She carries a history of MRSA and recurrent boils. She denies diarrhea, dysuria, headache, photophobia but endorses to myalgias. 10/10-patient doing well. Fever defervesced. Minimal pain diarrhea. By ultrasound today. Continuing antibiotic coverage. White count 6000. Tachycardia improved. Blood sugars around goal. Creatinine 1.3. Continue holding RADHA inhibitors. Diabetic diet 10/11-patient doing well. T-max 102. Stable hemodynamics with white count 6000. Surgery on board. Will undergo incision drainage today. Continue antibiotic coverage. MRSA on cultures. De-escalate antibiotics. Family at [facility]. Addressed concerns and answered questions. No concerns expressed by nursing staff. 10/12-patient doing well. Status post excisional debridement of bilateral thigh abscess by surgery. On Zyvox for MRSA. No overnight fever chills. Stable hemodynamics. Transferring to medical floor. Will possibly discharge in 24 to 48 hours pending therapy evaluation. 10/13-patient clinically improved. No overnight events. No concerns expressed by nursing staff. Gauze packing at the surgical site. Minimal drainage. No fever or shakes. On IV vancomycin. Target antibiotic for additional 5 days. Case management coordinate SNF transfer likely Wednesday or sooner pending clinical improvement and surgery recommendations. Continue PT OT. - Constitutional Vitals: Vital Signs Temp Pulse Resp BP Pulse Ox 97.9 F 80 16 124/63 96 10/13/19 07:42 10/13/19 07:42 10/13/19 07:42 10/13/19 07:42 10/13/19 07:42 Period Temp Pulse Resp BP Sys/Jay Pulse Ox Last 24 Hr 96.8 F-98.9 F 80-90 16-20 110-148/58-82 94-100 Intake and Output 10/12/19 10/13/19 10/13/19 21:59 05:59 13:59 Intake Total 640 Output Total 400 400 Balance 240 -400 Weight 385 lb Intake & Output: Intake & Output 10/12/19 10/13/19 10/13/19 21:59 05:59 13:59 Intake Total 640 Output Total 400 400 Balance 240 -400 Weight 385 lb Intake: Oral 640 Output: Void Amount 400 400 Other: Meal Dinner Percent of Meal Consumed 100% Feeding Ability Independent Urine Appearance Cloudy Clear Urine Color Dark Yellow Bright Yellow Urine Odor Normal # Bowel Movements 1 General appearance: morbidly obese Exam: Nonlabored breathing No anxiety Nondistended abdomen gauze packing surgery site thigh Medical - PN: Obj Da - Labs CBC & Chem 7: 10/13/19 04:25 10/13/19 04:25 Labs: Abnormal Lab Results 10/13/19 10/13/19 10/12/19 04:25 04:25 04:05 RBC 2.88 L Hgb 8.3 L Hct 26.0 L MPV Band Neutrophils % Lymphocytes % Eosinophils % (Manual) RBC Morphology Polychromasia PT INR APTT Chloride 110 H Carbon Dioxide 20 L 20 L Creatinine 1.2 H 1.2 H Glucose 148 H 275 H Calcium 8.4 L 8.3 L Albumin 2.7 L 2.9 L Globulin Albumin/Globulin Ratio 0.7 L 0.8 L Triglycerides 192 H Vancomycin Trough 10/12/19 10/11/19 10/11/19 04:05 08:13 04:15 RBC 2.96 L Hgb 8.9 L Hct 26.6 L MPV Band Neutrophils % 18 H Lymphocytes % 14 L Eosinophils % (Manual) RBC Morphology Abnorm A Polychromasia 1+ A PT 14.8 H INR 1.2 H APTT 39 H Chloride Carbon Dioxide Creatinine Glucose Calcium Albumin Globulin Albumin/Globulin Ratio Triglycerides Vancomycin Trough 29.6 H* 10/11/19 10/11/19 04:15 04:15 RBC 3.33 L Hgb 9.9 L Hct 29.9 L MPV 7.2 L Band Neutrophils % Lymphocytes % Eosinophils % (Manual) 12 H RBC Morphology Polychromasia PT INR APTT Chloride Carbon Dioxide 19 L Creatinine 1.4 H Glucose 162 H Calcium 8.3 L Albumin 3.0 L Globulin 3.8 H Albumin/Globulin Ratio 0.8 L Triglycerides 178 H Vancomycin Trough Meds: Medications Acetaminophen (Tylenol) 650 mg PO Q4-6HP PRN; Protocol PRN Reason: Per Pain Protocol/Fever > 101 Hydrocodone Bitart/Acetaminophen ([place] 5/325mg) 0 tab PO Q4HP PRN; Protocol PRN Reason: Per Pain Protocol Last Admin: 10/13/19 07:38 Dose: 2 tab Documented by: Atorvastatin Calcium (Lipitor) 40 mg PO HS [facility] Last Admin: 10/12/19 20:46 Dose: 40 mg Documented by: Clopidogrel Bisulfate (Plavix) 75 mg PO DAILY [facility] Dextrose (Dextrose 50%) 0 ml IV UD PRN PRN Reason: Hypoglycemia Diagnostic Test (Pha) (Accu-Chek) 1 each FS ACHS [facility] Last Admin: 10/13/19 07:41 Dose: 1 each Documented by: Diazepam (Valium) 2 mg PO DAILYP PRN PRN Reason: Anxiety Docusate Sodium (Colace) 100 mg PO BID [facility] Last Admin: 10/12/19 20:45 Dose: 100 mg Documented by: Duloxetine HCl (Cymbalta) 90 mg PO HS [facility] Last Admin: 10/12/19 20:28 Dose: 90 mg Documented by: Escitalopram Oxalate (Lexapro) 20 mg PO DAILY [facility] Glucose (Insta-Glucose) 15 gm PO PRN PRN PRN Reason: Hypoglycemia Heparin Sodium (Porcine) (Heparin) 5,000 unit SQ Q12 [facility] Last Admin: 10/12/19 20:28 Dose: 5,000 unit Documented by: Hydralazine HCl (Apresoline) 10 mg IV Q4-6HP PRN PRN Reason: Hypertension Magnesium Sulfate (Magnesium Sulfate) 2 gm in 50 mls @ 50 mls/hr IV UD PRN PRN Reason: MG = or < 1.7 Acetaminophen (Ofirmev) 650 mg in 65 mls @ 130 mls/hr IV Q6HP PRN; Protocol PRN Reason: Per Pain Protocol/Fever > 101 Vancomycin HCl 1,500 mg/ (Sodium Chloride) 500 mls @ 333.3 mls/hr IV Q24H [facility] Last Infusion: 10/12/19 13:35 Dose: Infused Documented by: Insulin Glargine (Lantus) 35 unit SQ HS [facility] Last Admin: 10/12/19 20:44 Dose: 35 units Documented by: Insulin Human Lispro (Humalog) 0 unit SQ ACHS [facility]; Protocol Last Admin: 10/12/19 20:43 Dose: 2 unit Documented by: Iron Carb/Multivit/White Sugar Boiler/Folic Acid (Multivitamin W/Minerals) 1 tab PO DAILY [facility] Loperamide HCl (Imodium) 4 mg PO BIDP PRN PRN Reason: Diarrhea Magnesium Hydroxide (Milk Of Magnesia) 30 ml PO HSP PRN PRN Reason: Constipation Melatonin (Melatonin 3mg Tablet) 3 mg PO HSP PRN PRN Reason: Insomnia Last Admin: 10/12/19 20:29 Dose: 3 mg Documented by: Ondansetron HCl (Zofran) 4 mg IV Q4-6HP PRN; Protocol PRN Reason: Nausea And Vomiting Victoza 6 Mg/Ml Pen 0 dose SC DAILY [facility] Polyethylene Glycol (Miralax) 17 gm PO DAILYP PRN PRN Reason: Constipation Potassium Chloride (Klor-Con) 40 meq PO DAILYP PRN PRN Reason: K+ < 3.5 Potassium Chloride (Kdur) 10 meq PO QAC [facility] Prazosin HCl (Minipress) 1 mg PO [facility] Last Admin: 10/12/19 20:29 Dose: 1 mg Documented by: Senna/Docusate Sodium (Senna Plus Tablet) 1 tab PO HS [facility] Last Admin: 10/12/19 20:29 Dose: 1 tab Documented by: Sitagliptin Phosphate (Januvia) 100 mg PO DAILY [facility] Sodium Chloride (Saline Flush) 10 ml IV Q8 [facility] Last Admin: 10/13/19 05:55 Dose: 10 ml Documented by: Topiramate (Topamax) 150 mg PO BID [facility] Last Admin: 10/12/19 20:28 Dose: 150 mg Documented by: Vancomycin HCl (Vancomycin Per Pharmacy) 1 order IV UD [facility]; Protocol Medical - PN: A/P - Time Spent With Patient Total time spent is greater than 50% in coordination of care (as documented) at patient's floor/unit and/or counseling patient: 25 - 35 minutes (1) Abscess or cellulitis of thigh Status: Acute Assessment and plan: * Cellulitis with furunculosis/abscess medial and posterior R and left thigh, cultures positive MRSA, status post incision debridement by surgery. Postop day 2. Continue IV vancomycin additional 5 days. Anticipate SNF transfer for continued posthospitalization care/IV antibiotics * Early sepsis-clinically resolved * DM type II-basal prandial insulin, CC diet, improved blood sugar now at goal * Mild BANG -improving. Creatinine 1.2 * Morbid obesity-frequent turning/perineal care/nutrition consult * Hypertension -systolics at goal. Antihypertensives on hold * History of TIA continue Plavix statin * Hyperlipidemia continue statin * Anxiety disorder continue diazepam/Cymbalta * Full code * Prophylaxis heparin Plan * Continue IV vancomycin patient 5 days * Postoperative care per surgery * Continue prior medical condition management on home meds * PT OT nutrition support * SNF transfer coordination per case management likely in the next 48 to 72 hours Current Visit: Yes Medical - PN: Qual - VTE Deep Vein Thrombosis/Pulmonary Embolism Present on Admission: No
[2019-10-13] MEDS: MULTIVIT,THER IRON,CA,FA & MIN 1 TABLET PO SCH (09:28)
[2019-10-13] MEDS: DOCUSATE SODIUM 100 MG CAPSULE PO SCH ×2 (09:28→20:28)
[2019-10-13] MEDS: VANCOMYCIN 1,500 MG in 0.9 % SODIUM CHLORIDE 500 ML IV SCH (10:11)
--- NOTE | 2019-10-13 12:07 | General Surgery Progress Note ---
Subjective Patient reports: feels better, pain is less, afebrile Narrative: Note initiated : 10/13/19 at 12:05 pm Service Date, if different from initiated Date: [] Patient: Kait Tolentino 53 y/o F admitted on 10/09/19 for Abdominal Discomfort, Abscesses to RLE, Fever. Chief Complaint: [Patient is doing well. She has less drainage there is some bloody drainage noted. The wounds look very good. She is afebrile and does not have leukocytosis. Patient is clinically stable and can be transferred to correction facility for continued drainage when cleared by hospitalist.] Objective Temp Pulse Resp BP Pulse Ox 97.9 F 80 16 124/63 96 10/13/19 07:42 10/13/19 07:42 10/13/19 07:42 10/13/19 07:42 10/13/19 07:42 - Additional Data Intake & Output - Last 24 hours: Intake & Output 10/11/19 10/12/19 10/13/19 10/14/19 05:59 05:59 05:59 05:59 Intake Total 5855 1190 1860 Output Total 2680 1560 1375 1100 Balance 3175 -370 485 -1100 Weight 371 lb 12.8 oz 381 lb 9.6 oz 385 lb - General physical appearance well developed, well nourished, no distress, obese - Eyes PERRL, normal ocular movement - ENT normal pinna, normal nares, normal mucosa, no hearing loss, no congestion - Neck no masses, no bruits, trachea midline, no lymphadenopathy, no venous distension - Respiratory normal expansion, normal respiratory effort, clear to auscultation - Cardiovascular Cardiovascular exam: Present: normal rate and rhythm, RRR, +S1, +S2. Absent: JVD, tachycardia - Abdomen non tender, bowel sounds (present), surgical scars (none), masses (none) - Integumentary other (abscesses of posterior thighs are significantly improved bilaterally) - Psychiatric oriented to time, oriented to person, oriented to place, speech is normal, memory intact - Labs 10/13/19 04:25 10/13/19 04:25 Diabetes panel 10/13/19 Range/Units 04:25 Sodium 142 (133-145) mmol/L Potassium 4.0 (3.3-5.1) mmol/L Chloride 110 H (96-108) mmol/L Carbon Dioxide 20 L (22-30) mmol/L BUN 19 (6-20) mg/dl Creatinine 1.2 H (0.6-1.1) mg/dl Glucose 148 H (70-105) mg/dL Calcium 8.4 L (8.6-10.4) mg/dl AST 9 (0-37) U/l ALT 9 (0-40) U/l Alkaline Phosphatase 77 (39-117) U/L Total Protein 6.4 (5.9-8.4) gm/dL Albumin 2.7 L (3.2-5.2) gm/dL Triglycerides 192 H (<150) mg/dl Calcium panel 10/13/19 Range/Units 04:25 Calcium 8.4 L (8.6-10.4) mg/dl Phosphorus 3.5 (2.7-4.5) mg/dL Albumin 2.7 L (3.2-5.2) gm/dL Pituitary panel 10/13/19 Range/Units 04:25 Sodium 142 (133-145) mmol/L Potassium 4.0 (3.3-5.1) mmol/L Chloride 110 H (96-108) mmol/L Carbon Dioxide 20 L (22-30) mmol/L BUN 19 (6-20) mg/dl Creatinine 1.2 H (0.6-1.1) mg/dl Glucose 148 H (70-105) mg/dL Calcium 8.4 L (8.6-10.4) mg/dl Adrenal panel 10/13/19 Range/Units 04:25 Sodium 142 (133-145) mmol/L Potassium 4.0 (3.3-5.1) mmol/L Chloride 110 H (96-108) mmol/L Carbon Dioxide 20 L (22-30) mmol/L BUN 19 (6-20) mg/dl Creatinine 1.2 H (0.6-1.1) mg/dl Glucose 148 H (70-105) mg/dL Calcium 8.4 L (8.6-10.4) mg/dl Total Bilirubin < 0.2 (0.0-1.0) mg/dL AST 9 (0-37) U/l ALT 9 (0-40) U/l Alkaline Phosphatase 77 (39-117) U/L Total Protein 6.4 (5.9-8.4) gm/dL Albumin 2.7 L (3.2-5.2) gm/dL Assessment and Plan (1) Abscess of left thigh Status: Acute Assessment and plan: Continue present antibiotic therapy Change dressings as needed Stable for discharge home with home health when cleared by hospitalist. Current Visit: Yes (2) Abscess of right thigh Status: Acute Current Visit: Yes (3) Diabetes mellitus type 2 in obese Status: Acute Current Visit: Yes - Time Spent With Patient Total time spent is greater than 50% in coordination of care (as documented) at patient's floor/unit and/or counseling patient:
[2019-10-13] MEDS: DULoxetine 30 MG CAPSULE PO SCH (20:28)
[2019-10-13] MEDS: PRAZOSIN 1 MG CAPSULE PO SCH (20:29)
[2019-10-13] MEDS: INSULIN GLARGINE, HUMAN 1 UNIT/0.01 ML SQ SCH (20:29)
[2019-10-13] MEDS: ATORVASTATIN 40 MG TABLET PO SCH (20:29)
[2019-10-13] MEDS: SENNOSIDES/DOCUSATE SODIUM 1 TAB TABLET PO SCH (20:29)
[2019-10-14] MEDS: HYDROcodone/APAP 5/325MG TABLET PO PRN ×3 (04:36→21:24)
[2019-10-14] MEDS: 0.9 % SODIUM CHLORIDE 10 ML SYRINGE IV SCH ×3 (04:36→21:16)
[2019-10-14 06:02] LABS: Hematocrit 27.8 % (36.0-48.0); Hemoglobin 9.1 g/dL (12.0-15.0); Mean Cell Volume 90.7 fL (80.0-100.0); Mean Corpuscular HGB Conc 32.8 g/dL (31.0-36.0); Mean Platelet Volume 7.1 fL (7.4-10.4); Platelet Count 305 K/mcL (140-440); RBC 3.07 M/mcL (4.00-5.20); Red Cell Distribution Width 14.1 % (11.5-14.5); WBC 6.5 K/mcL (4.5-11.0)
[2019-10-14 06:09] LABS: ALT/SGPT 12 U/l (0-40); AST/SGOT 15 U/l (0-37); Albumin 3.2 gm/dL (3.2-5.2); Albumin/Globulin Ratio 0.8 (1.0-2.3); Alkaline Phosphatase 91 U/L (39-117); Bilirubin,Direct < 0.2 mg/dL (0.0-0.3); Bilirubin,Total < 0.2 mg/dL (0.0-1.0); Blood Urea Nitrogen 17 mg/dl (6-20); Carbon Dioxide 19 mmol/L (22-30); Glomerular Filtration Rate 65; Glucose 136 mg/dL (70-105); Lactate Dehydrogenase 171 U/L (94-250); Phosphorous 3.9 mg/dL (2.7-4.5); Triglycerides 257 mg/dl (<150); Uric Acid 6.4 mg/dL (2.5-8.0)
[2019-10-14 06:15] LABS: Chloride 109 mmol/L (96-108)
[2019-10-14] MEDS: INSULIN LISPRO 1 UNIT/0.01 ML UNIT SQ SCH ×4 (07:13→21:22)
[2019-10-14 07:36] LABS: Anisocytosis FEW (NONE SEEN); Eosinophils % (Manual) 1 % (0-7); Lymphocytes % 48 % (15-49); Monocytes % (Manual) 4 % (1-12); Platelet Estimate NORMAL (NORMAL); Polychromasia FEW (NONE SEEN); RBC Morphology ABNORM (NORMAL); Segmented Neutrophils % 47 % (38-78)
[2019-10-14] MEDS: POTASSIUM CHLORIDE 10 MEQ TABLET PO SCH (08:00)
[2019-10-14] MEDS: TOPIRAMATE 100 MG TABLET PO SCH ×2 (09:03→21:10)
[2019-10-14] MEDS: HEPARIN 5,000 UNIT/ML VIAL SQ SCH ×2 (09:03→21:11)
[2019-10-14] MEDS: ESCITALOPRAM 20 MG TABLET PO SCH (09:04)
[2019-10-14] MEDS: CLOPIDOGREL 75 MG TABLET PO SCH (09:04)
[2019-10-14] MEDS: DOCUSATE SODIUM 100 MG CAPSULE PO SCH ×2 (09:04→21:09)
[2019-10-14] MEDS: sitaGLIPtin 100 MG TABLET PO SCH (09:04)
[2019-10-14] MEDS: MULTIVIT,THER IRON,CA,FA & MIN 1 TABLET PO SCH (09:04)
[2019-10-14] MEDS: VANCOMYCIN 1,500 MG in 0.9 % SODIUM CHLORIDE 500 ML IV SCH (09:47)
--- NOTE | 2019-10-14 09:55 | Internal Med Progress Note ---
Medical - PN: Subj Patient information: Note initiated : 10/14/19 at 9:53 am Service Date, if different from initiated Date: [] Patient: Kait Tolentino a 53 y/o F admitted on 10/09/19 for Abdominal Discomfort, Abscesses to RLE, Fever. Chief Complaint: [] Interval history: Ms. Tolentino is a 53 year old F with known history of diabetes/morbidly obese with BMI >65/hypertension and history of TIA who presents with shaking chills fever along with lower abdominal pain. Patient symptoms have progressed over the last few days. She has had recurrent boils around the inside and back of the thigh area. She was treated for the same at [facility] in March and underwent incision and drainage of groin abscess. For the last couple days she has had increasing malaise/fever/chills and lack of appetite. She noticed a couple of boils started draining. She presents today to the ER along with her Duglas. Initial work-up was consistent with severe sepsis with a fever 103 tachycardia tachypnea and medial thigh boils with active drainage. CT abdomen was unremarkable. Thigh ultrasound pending. Hospitalist service was consulted for admission. At the time of evaluation patient is alert but anxious. She is febrile at 101.4. She received 1 dose of Rocephin. She denies change medication. Her blood sugars has not been optimally controlled recently. She denies smoking or alcoholism. She carries a history of MRSA and recurrent boils. She denies diarrhea, dysuria, headache, photophobia but endorses to myalgias. 10/10-patient doing well. Fever defervesced. Minimal pain diarrhea. By ultrasound today. Continuing antibiotic coverage. White count 6000. Tachycardia improved. Blood sugars around goal. Creatinine 1.3. Continue holding RADHA inhibitors. Diabetic diet 10/11-patient doing well. T-max 102. Stable hemodynamics with white count 6000. Surgery on board. Will undergo incision drainage today. Continue antibiotic coverage. MRSA on cultures. De-escalate antibiotics. Family at [facility]. Addressed concerns and answered questions. No concerns expressed by nursing staff. 10/12-patient doing well. Status post excisional debridement of bilateral thigh abscess by surgery. On Zyvox for MRSA. No overnight fever chills. Stable hemodynamics. Transferring to medical floor. Will possibly discharge in 24 to 48 hours pending therapy evaluation. 10/13-patient clinically improved. No overnight events. No concerns expressed by nursing staff. Gauze packing at the surgical site. Minimal drainage. No fever or shakes. On IV vancomycin. Target antibiotic for additional 5 days. Case management coordinate SNF transfer likely Wednesday or sooner pending clinical improvement and surgery recommendations. Continue PT OT. 10/14-patient had a blackout episode while undergoing physical therapy. Patient felt it was like a seizure episode. No postictal phase. Patient on home dose Topamax. Stable hemodynamics. Denies chest pain headache or vision changes. Ongoing PT OT/wound care. On antibiotic coverage. Anticipate discharge on Wednesday to SNF. - Constitutional Vitals: Vital Signs Temp Pulse Resp BP Pulse Ox 98.7 F 85 14 143/76 96 10/14/19 07:42 10/14/19 07:42 10/14/19 07:42 10/14/19 07:42 10/14/19 07:42 Period Temp Pulse Resp BP Sys/Jay Pulse Ox Last 24 Hr 97.6 F-98.7 F 79-88 12-20 120-143/58-76 96-99 Intake and Output 10/13/19 10/14/19 10/14/19 21:59 05:59 13:59 Intake Total 1040 540 360 Output Total 500 550 300 Balance 540 -10 60 Weight 387 lb 8 oz Intake & Output: Intake & Output 10/13/19 10/14/19 10/14/19 21:59 05:59 13:59 Intake Total 1040 540 360 Output Total 500 550 300 Balance 540 -10 60 Weight 387 lb 8 oz Intake: Oral 1040 540 360 Output: Void Amount 500 550 300 Other: Meal Dinner Breakfast Percent of Meal Consumed 100% 100% Feeding Ability Independent Urine Appearance Clear Clear Urine Color Bright Yellow Dark Yellow Stool Size Large Moderate Stool Color Brown Brown Stool Consistency Loose Loose # Voids 1 1 # Bowel Movements 1 1 General appearance: no acute distress Exam: Alert oriented Nonlabored breathing Brief episode of partial seizure Morbidly obese No anxiety Medical - PN: Obj Da - Labs CBC & Chem 7: 10/14/19 04:45 10/14/19 04:45 Labs: Abnormal Lab Results 10/14/19 10/14/19 10/13/19 04:45 04:45 04:25 RBC 3.07 L Hgb 9.1 L Hct 27.8 L MPV 7.1 L Band Neutrophils % Lymphocytes % RBC Morphology Abnorm A Polychromasia Few A Anisocytosis Few A Chloride 109 H 110 H Carbon Dioxide 19 L 20 L Creatinine 1.2 H Glucose 136 H 148 H Calcium 8.4 L Albumin 2.7 L Globulin 4.0 H Albumin/Globulin Ratio 0.8 L 0.7 L Triglycerides 257 H 192 H 10/13/19 10/12/19 10/12/19 04:25 04:05 04:05 RBC 2.88 L 2.96 L Hgb 8.3 L 8.9 L Hct 26.0 L 26.6 L MPV Band Neutrophils % 18 H Lymphocytes % 14 L RBC Morphology Abnorm A Polychromasia 1+ A Anisocytosis Chloride Carbon Dioxide 20 L Creatinine 1.2 H Glucose 275 H Calcium 8.3 L Albumin 2.9 L Globulin Albumin/Globulin Ratio 0.8 L Triglycerides Meds: Medications Acetaminophen (Tylenol) 650 mg PO Q4-6HP PRN; Protocol PRN Reason: Per Pain Protocol/Fever > 101 Hydrocodone Bitart/Acetaminophen ([place] 5/325mg) 0 tab PO Q4HP PRN; Protocol PRN Reason: Per Pain Protocol Last Admin: 10/14/19 04:36 Dose: 2 tab Documented by: Atorvastatin Calcium (Lipitor) 40 mg PO [facility] Last Admin: 10/13/19 20:29 Dose: 40 mg Documented by: Clopidogrel Bisulfate (Plavix) 75 mg PO DAILY [facility] Last Admin: 10/14/19 09:04 Dose: 75 mg Documented by: Dextrose (Dextrose 50%) 0 ml IV UD PRN PRN Reason: Hypoglycemia Diagnostic Test (Pha) (Accu-Chek) 1 each FS ACHS [facility] Last Admin: 10/14/19 07:12 Dose: 1 each Documented by: Diazepam (Valium) 2 mg PO DAILYP PRN PRN Reason: Anxiety Docusate Sodium (Colace) 100 mg PO BID [facility] Last Admin: 10/14/19 09:04 Dose: 100 mg Documented by: Duloxetine HCl (Cymbalta) 90 mg PO HS [facility] Last Admin: 10/13/19 20:28 Dose: 90 mg Documented by: Escitalopram Oxalate (Lexapro) 20 mg PO DAILY [facility] Last Admin: 10/14/19 09:04 Dose: 20 mg Documented by: Glucose (Insta-Glucose) 15 gm PO PRN PRN PRN Reason: Hypoglycemia Heparin Sodium (Porcine) (Heparin) 5,000 unit SQ Q12 [facility] Last Admin: 10/14/19 09:03 Dose: 5,000 unit Documented by: Hydralazine HCl (Apresoline) 10 mg IV Q4-6HP PRN PRN Reason: Hypertension Magnesium Sulfate (Magnesium Sulfate) 2 gm in 50 mls @ 50 mls/hr IV UD PRN PRN Reason: MG = or < 1.7 Acetaminophen (Ofirmev) 650 mg in 65 mls @ 130 mls/hr IV Q6HP PRN; Protocol PRN Reason: Per Pain Protocol/Fever > 101 Vancomycin HCl 1,500 mg/ (Sodium Chloride) 500 mls @ 333.3 mls/hr IV Q24H [facility] Last Admin: 10/14/19 09:47 Dose: 333 mls/hr Documented by: Insulin Glargine (Lantus) 35 unit SQ HS [facility] Last Admin: 10/13/19 20:29 Dose: 35 units Documented by: Insulin Human Lispro (Humalog) 0 unit SQ ACHS [facility]; Protocol Last Admin: 10/14/19 07:13 Dose: Not Given Documented by: Iron Carb/Multivit/[place]/Folic Acid (Multivitamin W/Minerals) 1 tab PO DAILY [facility] Last Admin: 10/14/19 09:04 Dose: 1 tab Documented by: Loperamide HCl (Imodium) 4 mg PO BIDP PRN PRN Reason: Diarrhea Magnesium Hydroxide (Milk Of Magnesia) 30 ml PO HSP PRN PRN Reason: Constipation Melatonin (Melatonin 3mg Tablet) 3 mg PO HSP PRN PRN Reason: Insomnia Last Admin: 10/12/19 20:29 Dose: 3 mg Documented by: Ondansetron HCl (Zofran) 4 mg IV Q4-6HP PRN; Protocol PRN Reason: Nausea And Vomiting Victoza 6 Mg/Ml Pen 0 dose SC DAILY [facility] Last Admin: 10/14/19 09:03 Dose: 1 dose Documented by: Polyethylene Glycol (Miralax) 17 gm PO DAILYP PRN PRN Reason: Constipation Potassium Chloride (Klor-Con) 40 meq PO DAILYP PRN PRN Reason: K+ < 3.5 Potassium Chloride (Kdur) 10 meq PO QAC [facility] Last Admin: 10/14/19 08:00 Dose: 10 meq Documented by: Prazosin HCl (Minipress) 1 mg PO HS [facility] Last Admin: 10/13/19 20:29 Dose: 1 mg Documented by: Senna/Docusate Sodium (Senna Plus Tablet) 1 tab PO HS [facility] Last Admin: 10/13/19 20:29 Dose: 1 tab Documented by: Sitagliptin Phosphate (Januvia) 100 mg PO DAILY [facility] Last Admin: 10/14/19 09:04 Dose: 100 mg Documented by: Sodium Chloride (Saline Flush) 10 ml IV Q8 [facility] Last Admin: 10/14/19 04:36 Dose: 10 ml Documented by: Topiramate (Topamax) 150 mg PO BID [facility] Last Admin: 10/14/19 09:03 Dose: 150 mg Documented by: Vancomycin HCl (Vancomycin Per Pharmacy) 1 order IV UD [facility]; Protocol Medical - PN: A/P - Time Spent With Patient Total time spent is greater than 50% in coordination of care (as documented) at patient's floor/unit and/or counseling patient: 25 - 35 minutes (1) Abscess or cellulitis of thigh Status: Acute Assessment and plan: * Cellulitis with furunculosis/abscess medial and posterior R and left thigh, cultures positive MRSA, status post incision debridement by surgery. Postop day 2. Continue IV vancomycin additional 5 days. Anticipate SNF transfer for continued posthospitalization care/IV antibiotics * Early sepsis-clinically resolved * Brief seizure activity-similar to previous episodes per patient. Currently on Topamax * DM type II-basal prandial insulin, CC diet, improved blood sugar now at goal * Mild BANG -improving. Creatinine 1.2 * Morbid obesity-BMI over 65. continue frequent turning/perineal care/nutrition consult * Hypertension -systolics at goal. Antihypertensives on hold * History of TIA continue Plavix statin * Hyperlipidemia continue statin * Anxiety disorder continue SSRI/Cymbalta/diazepam * Full code * Prophylaxis heparin Plan * Vancomycin for additional 4 days * Dressing changes/wound care * Seizure watch * Continue prior medical condition management on home meds * Continue PT OT nutrition support * SNF transfer scheduled on Wednesday per SNF Current Visit: Yes Medical - PN: Qual - VTE Deep Vein Thrombosis/Pulmonary Embolism Present on Admission: No
--- NOTE | 2019-10-14 12:43 | Internal Med Progress Note ---
Medical - PN: Subj Patient information: Note initiated : 10/14/19 at 12:38 pm Service Date, if different from initiated Date: [] Patient: Kait Tolentino a 53 y/o F admitted on 10/09/19 for Abdominal Discomfort, Abscesses to RLE, Fever. Chief Complaint: [] Interval history: Ms. Tolentino is a 53 year old F with known history of diabetes/morbidly obese with BMI >65/hypertension and history of TIA who presents with shaking chills fever along with lower abdominal pain. Patient symptoms have progressed over the last few days. She has had recurrent boils around the inside and back of the thigh area. She was treated for the same at [facility] in March and underwent incision and drainage of groin abscess. For the last couple days she has had increasing malaise/fever/chills and lack of appetite. She noticed a couple of boils started draining. She presents today to the ER along with her Duglas. Initial work-up was consistent with severe sepsis with a fever 103 tachycardia tachypnea and medial thigh boils with active drainage. CT abdomen was unremarkable. Thigh ultrasound pending. Hospitalist service was consulted for admission. At the time of evaluation patient is alert but anxious. She is febrile at 101.4. She received 1 dose of Rocephin. She denies change medication. Her blood sugars has not been optimally controlled recently. She denies smoking or alcoholism. She carries a history of MRSA and recurrent boils. She denies diarrhea, dysuria, headache, photophobia but endorses to myalgias. 10/10-patient doing well. Fever defervesced. Minimal pain diarrhea. By ultrasound today. Continuing antibiotic coverage. White count 6000. Tachycardia improved. Blood sugars around goal. Creatinine 1.3. Continue holding RADHA inhibitors. Diabetic diet 10/11-patient doing well. T-max 102. Stable hemodynamics with white count 6000. Surgery on board. Will undergo incision drainage today. Continue antibiotic coverage. MRSA on cultures. De-escalate antibiotics. Family at [facility]. Addressed concerns and answered questions. No concerns expressed by nursing staff. 10/12-patient doing well. Status post excisional debridement of bilateral thigh abscess by surgery. On Zyvox for MRSA. No overnight fever chills. Stable hemodynamics. Transferring to medical floor. Will possibly discharge in 24 to 48 hours pending therapy evaluation. 10/13-patient clinically improved. No overnight events. No concerns expressed by nursing staff. Gauze packing at the surgical site. Minimal drainage. No fever or shakes. On IV vancomycin. Target antibiotic for additional 5 days. Case management coordinate SNF transfer likely Wednesday or sooner pending clinical improvement and surgery recommendations. Continue PT OT. 10/14-patient had a blackout episode while undergoing physical therapy. Patient felt it was like a seizure episode. No postictal phase. Patient on home dose Topamax. Stable hemodynamics. Denies chest pain headache or vision changes. Ongoing PT OT/wound care. On antibiotic coverage. Anticipate discharge on Wednesday to SNF. - Constitutional Vitals: Vital Signs Temp Pulse Resp BP Pulse Ox 99.6 F H 84 18 122/65 98 10/14/19 11:47 10/14/19 11:47 10/14/19 11:47 10/14/19 11:47 10/14/19 11:47 Period Temp Pulse Resp BP Sys/Jay Pulse Ox Last 24 Hr 97.6 F-99.6 F 79-88 12-20 120-143/58-76 96-99 Intake and Output 10/13/19 10/14/19 10/14/19 21:59 05:59 13:59 Intake Total 1040 540 360 Output Total 500 550 300 Balance 540 -10 60 Weight 175.767 kg Intake & Output: Intake & Output 10/13/19 10/14/19 10/14/19 21:59 05:59 13:59 Intake Total 1040 540 360 Output Total 500 550 300 Balance 540 -10 60 Weight 175.767 kg Intake: Oral 1040 540 360 Output: Void Amount 500 550 300 Other: Meal Dinner Breakfast Percent of Meal Consumed 100% 100% Feeding Ability Independent Urine Appearance Clear Clear Urine Color Bright Yellow Dark Yellow Stool Size Large Moderate Stool Color Brown Brown Stool Consistency Loose Loose # Voids 1 1 # Bowel Movements 1 1 Exam: General: Alert, Awake, No acute Distress, obese Eyes/N/T: EOMI, Head/Neck: neck supple, CV: RRR, No murmurs, Pulm: Clear b/l, no wheezing/rhonchi/rales Abd: soft, nontender, +BS x4 Ext: no clubbing/cyanosis/ Thigh: b/l with Neuro: Alert, no focal deficits, moves all extremities, Skin: warm/dry Medical - PN: Obj Da - Labs CBC & Chem 7: 10/14/19 04:45 10/14/19 04:45 Labs: Abnormal Lab Results 10/14/19 10/14/19 10/13/19 04:45 04:45 04:25 RBC 3.07 L Hgb 9.1 L Hct 27.8 L MPV 7.1 L Band Neutrophils % Lymphocytes % RBC Morphology Abnorm A Polychromasia Few A Anisocytosis Few A Chloride 109 H 110 H Carbon Dioxide 19 L 20 L Creatinine 1.2 H Glucose 136 H 148 H Calcium 8.4 L Albumin 2.7 L Globulin 4.0 H Albumin/Globulin Ratio 0.8 L 0.7 L Triglycerides 257 H 192 H 10/13/19 10/12/19 10/12/19 04:25 04:05 04:05 RBC 2.88 L 2.96 L Hgb 8.3 L 8.9 L Hct 26.0 L 26.6 L MPV Band Neutrophils % 18 H Lymphocytes % 14 L RBC Morphology Abnorm A Polychromasia 1+ A Anisocytosis Chloride Carbon Dioxide 20 L Creatinine 1.2 H Glucose 275 H Calcium 8.3 L Albumin 2.9 L Globulin Albumin/Globulin Ratio 0.8 L Triglycerides Meds: Medications Acetaminophen (Tylenol) 650 mg PO Q4-6HP PRN; Protocol PRN Reason: Per Pain Protocol/Fever > 101 Hydrocodone Bitart/Acetaminophen ([place] 5/325mg) 0 tab PO Q4HP PRN; Protocol PRN Reason: Per Pain Protocol Last Admin: 10/14/19 04:36 Dose: 2 tab Documented by: Atorvastatin Calcium (Lipitor) 40 mg PO HS [facility] Last Admin: 10/13/19 20:29 Dose: 40 mg Documented by: Clopidogrel Bisulfate (Plavix) 75 mg PO DAILY [facility] Last Admin: 10/14/19 09:04 Dose: 75 mg Documented by: Dextrose (Dextrose 50%) 0 ml IV UD PRN PRN Reason: Hypoglycemia Diagnostic Test (Pha) (Accu-Chek) 1 each FS ACHS [facility] Last Admin: 10/14/19 11:29 Dose: 1 each Documented by: Diazepam (Valium) 2 mg PO DAILYP PRN PRN Reason: Anxiety Docusate Sodium (Colace) 100 mg PO BID [facility] Last Admin: 10/14/19 09:04 Dose: 100 mg Documented by: Duloxetine HCl (Cymbalta) 90 mg PO HS [facility] Last Admin: 10/13/19 20:28 Dose: 90 mg Documented by: Escitalopram Oxalate (Lexapro) 20 mg PO DAILY [facility] Last Admin: 10/14/19 09:04 Dose: 20 mg Documented by: Glucose (Insta-Glucose) 15 gm PO PRN PRN PRN Reason: Hypoglycemia Heparin Sodium (Porcine) (Heparin) 5,000 unit SQ Q12 [facility] Last Admin: 10/14/19 09:03 Dose: 5,000 unit Documented by: Hydralazine HCl (Apresoline) 10 mg IV Q4-6HP PRN PRN Reason: Hypertension Magnesium Sulfate (Magnesium Sulfate) 2 gm in 50 mls @ 50 mls/hr IV UD PRN PRN Reason: MG = or < 1.7 Acetaminophen (Ofirmev) 650 mg in 65 mls @ 130 mls/hr IV Q6HP PRN; Protocol PRN Reason: Per Pain Protocol/Fever > 101 Vancomycin HCl 1,500 mg/ (Sodium Chloride) 500 mls @ 333.3 mls/hr IV Q24H [facility] Last Admin: 10/14/19 09:47 Dose: 333 mls/hr Documented by: Insulin Glargine (Lantus) 35 unit SQ HS [facility] Last Admin: 10/13/19 20:29 Dose: 35 units Documented by: Insulin Human Lispro (Humalog) 0 unit SQ ACHS [facility]; Protocol Last Admin: 10/14/19 11:31 Dose: 1 unit Documented by: Iron Carb/Multivit/[place]/Folic Acid (Multivitamin W/Minerals) 1 tab PO DAILY [facility] Last Admin: 10/14/19 09:04 Dose: 1 tab Documented by: Loperamide HCl (Imodium) 4 mg PO BIDP PRN PRN Reason: Diarrhea Magnesium Hydroxide (Milk Of Magnesia) 30 ml PO HSP PRN PRN Reason: Constipation Melatonin (Melatonin 3mg Tablet) 3 mg PO HSP PRN PRN Reason: Insomnia Last Admin: 10/12/19 20:29 Dose: 3 mg Documented by: Ondansetron HCl (Zofran) 4 mg IV Q4-6HP PRN; Protocol PRN Reason: Nausea And Vomiting Victoza 6 Mg/Ml Pen 0 dose SC DAILY [facility] Last Admin: 10/14/19 09:03 Dose: 1 dose Documented by: Polyethylene Glycol (Miralax) 17 gm PO DAILYP PRN PRN Reason: Constipation Potassium Chloride (Klor-Con) 40 meq PO DAILYP PRN PRN Reason: K+ < 3.5 Potassium Chloride (Kdur) 10 meq PO QAMCC [facility] Last Admin: 10/14/19 08:00 Dose: 10 meq Documented by: Prazosin HCl (Minipress) 1 mg PO [facility] Last Admin: 10/13/19 20:29 Dose: 1 mg Documented by: Senna/Docusate Sodium (Senna Plus Tablet) 1 tab PO HS [facility] Last Admin: 10/13/19 20:29 Dose: 1 tab Documented by: Sitagliptin Phosphate (Januvia) 100 mg PO DAILY [facility] Last Admin: 10/14/19 09:04 Dose: 100 mg Documented by: Sodium Chloride (Saline Flush) 10 ml IV Q8 [facility] Last Admin: 10/14/19 04:36 Dose: 10 ml Documented by: Topiramate (Topamax) 150 mg PO BID [facility] Last Admin: 10/14/19 09:03 Dose: 150 mg Documented by: Vancomycin HCl (Vancomycin Per Pharmacy) 1 order IV UD [facility]; Protocol Medical - PN: A/P - Time Spent With Patient Total time spent is greater than 50% in coordination of care (as documented) at patient's floor/unit and/or counseling patient: - Narrative A/P Narrative: A: *Cellulitis with furunculosis/abscess medial and posterior b/l Thigh with MRSA: s/p I&D (10/11) *Early sepsis: clinically resolved *Brief seizure activity: imilar to previous episodes per patient. Currently on Topamax *DM type II: *Mild BANG: improving *Morbid obesity: BMI over 65 *Hypertension: *History of TIA: continue Plavix statin *Hyperlipidemia: continue statin *Anxiety disorder: continue SSRI/Cymbalta/diazepam Plan: -Continue IV vancomycin additional 4 days -Dressing changes/wound care -Seizure watch -basal prandial insulin, CC diet, improved blood sugar now at goal -ACEI/lasix held for BANG -Continue PT OT nutrition support -SNF transfer scheduled on Wednesday per SNF -ppx: heparin Full code Medical - PN: Qual - VTE Deep Vein Thrombosis/Pulmonary Embolism Present on Admission: No
[2019-10-14] MEDS: DULoxetine 30 MG CAPSULE PO SCH (21:08)
[2019-10-14] MEDS: PRAZOSIN 1 MG CAPSULE PO SCH (21:09)
[2019-10-14] MEDS: SENNOSIDES/DOCUSATE SODIUM 1 TAB TABLET PO SCH (21:09)
[2019-10-14] MEDS: ATORVASTATIN 40 MG TABLET PO SCH (21:09)
[2019-10-14] MEDS: INSULIN GLARGINE, HUMAN 1 UNIT/0.01 ML SQ SCH (21:12)
[2019-10-15] MEDS: HYDROcodone/APAP 5/325MG TABLET PO PRN ×3 (04:08→20:54)
[2019-10-15] MEDS: 0.9 % SODIUM CHLORIDE 10 ML SYRINGE IV SCH ×3 (07:09→21:04)
--- NOTE | 2019-10-15 07:52 | Internal Med Progress Note ---
Medical - PN: Subj Patient information: Note initiated : 10/15/19 at 7:45 am Service Date, if different from initiated Date: [] Patient: Kait Tolentino a 53 y/o F admitted on 10/09/19 for Abdominal Discomfort, Abscesses to RLE, Fever. Chief Complaint: [] Interval history: Ms. Tolentino is a 53 year old F with known history of diabetes/morbidly obese with BMI >65/hypertension and history of TIA who presents with shaking chills fever along with lower abdominal pain. Patient symptoms have progressed over the last few days. She has had recurrent boils around the inside and back of the thigh area. She was treated for the same at [facility] in March and underwent incision and drainage of groin abscess. For the last couple days she has had increasing malaise/fever/chills and lack of appetite. She noticed a couple of boils started draining. She presents today to the ER along with her Duglas. Initial work-up was consistent with severe sepsis with a fever 103 tachycardia tachypnea and medial thigh boils with active drainage. CT abdomen was unremarkable. Thigh ultrasound pending. Hospitalist service was consulted for admission. At the time of evaluation patient is alert but anxious. She is febrile at 101.4. She received 1 dose of Rocephin. She denies change medication. Her blood sugars has not been optimally controlled recently. She denies smoking or alcoholism. She carries a history of MRSA and recurrent boils. She denies diarrhea, dysuria, headache, photophobia but endorses to myalgias. 10/10-patient doing well. Fever defervesced. Minimal pain diarrhea. By ultrasound today. Continuing antibiotic coverage. White count 6000. Tachycardia improved. Blood sugars around goal. Creatinine 1.3. Continue holding RADHA inhibitors. Diabetic diet 10/11-patient doing well. T-max 102. Stable hemodynamics with white count 6000. Surgery on board. Will undergo incision drainage today. Continue antibiotic coverage. MRSA on cultures. De-escalate antibiotics. Family at [facility]. Addressed concerns and answered questions. No concerns expressed by nursing staff. 10/12-patient doing well. Status post excisional debridement of bilateral thigh abscess by surgery. On Zyvox for MRSA. No overnight fever chills. Stable hemodynamics. Transferring to medical floor. Will possibly discharge in 24 to 48 hours pending therapy evaluation. 10/13-patient clinically improved. No overnight events. No concerns expressed by nursing staff. Gauze packing at the surgical site. Minimal drainage. No fever or shakes. On IV vancomycin. Target antibiotic for additional 5 days. Case management coordinate SNF transfer likely Wednesday or sooner pending clinical improvement and surgery recommendations. Continue PT OT. 10/14-patient had a blackout episode while undergoing physical therapy. Patient felt it was like a seizure episode. No postictal phase. Patient on home dose Topamax. Stable hemodynamics. Denies chest pain headache or vision changes. Ongoing PT OT/wound care. On antibiotic coverage. Anticipate discharge on Wednesday to SNF. 10/15 No overnight events. No new complaints. Feeling approved overall. Review of Systems: denies headache/fever/chills/nausea/vomiting/chest or abdominal pain/cough/dyspnea/diarrhea. Otherwise see above. - Constitutional Vitals: Vital Signs Temp Pulse Resp BP Pulse Ox 97.4 F 80 16 112/50 95 10/15/19 04:00 10/15/19 04:00 10/15/19 04:00 10/15/19 04:00 10/14/19 23:36 Period Temp Pulse Resp BP Sys/Jay Pulse Ox Last 24 Hr 97.4 F-99.6 F 76-84 - 112-146/50-78 95-98 Intake and Output 10/14/19 10/15/19 10/15/19 21:59 05:59 13:59 Intake Total 1440 400 Output Total 900 975 Balance 540 -575 Weight 175.087 kg Intake & Output: Intake & Output 10/14/19 10/15/19 10/15/19 21:59 05:59 13:59 Intake Total 1440 400 Output Total 900 975 Balance 540 -575 Weight 175.087 kg Intake: Oral 1440 400 Output: Void Amount 900 975 Other: Meal Dinner Percent of Meal Consumed 100% Feeding Ability Independent Urine Appearance Clear Clear Urine Color Dark Yellow Dark Yellow Exam: General: Alert, Awake, No acute Distress, obese Eyes/N/T: EOMI, Head/Neck: neck supple, CV: RRR, No murmurs, Pulm: Clear b/l, no wheezing/rhonchi/rales Abd: soft, nontender, +BS x4 Ext: no clubbing/cyanosis/mild edema LE's Neuro: Alert, no focal deficits, moves all extremities, Skin: warm/dry Medical - PN: Obj Da - Labs CBC & Chem 7: 10/14/19 04:45 10/14/19 04:45 Labs: Abnormal Lab Results 10/14/19 10/14/19 10/13/19 04:45 04:45 04:25 RBC 3.07 L Hgb 9.1 L Hct 27.8 L MPV 7.1 L RBC Morphology Abnorm A Polychromasia Few A Anisocytosis Few A Chloride 109 H 110 H Carbon Dioxide 19 L 20 L Creatinine 1.2 H Glucose 136 H 148 H Calcium 8.4 L Albumin 2.7 L Globulin 4.0 H Albumin/Globulin Ratio 0.8 L 0.7 L Triglycerides 257 H 192 H 10/13/19 04:25 RBC 2.88 L Hgb 8.3 L Hct 26.0 L MPV RBC Morphology Polychromasia Anisocytosis Chloride Carbon Dioxide Creatinine Glucose Calcium Albumin Globulin Albumin/Globulin Ratio Triglycerides Meds: Medications Acetaminophen (Tylenol) 650 mg PO Q4-6HP PRN; Protocol PRN Reason: Per Pain Protocol/Fever > 101 Hydrocodone Bitart/Acetaminophen ([place] 5/325mg) 0 tab PO Q4HP PRN; Protocol PRN Reason: Per Pain Protocol Last Admin: 10/15/19 04:08 Dose: 2 tab Documented by: Atorvastatin Calcium (Lipitor) 40 mg PO [facility] Last Admin: 10/14/19 21:09 Dose: 40 mg Documented by: Clopidogrel Bisulfate (Plavix) 75 mg PO DAILY COUNTS INCLUDE 234 BEDS AT THE [facility] Last Admin: 10/14/19 09:04 Dose: 75 mg Documented by: Dextrose (Dextrose 50%) 0 ml IV UD PRN PRN Reason: Hypoglycemia Diagnostic Test (Pha) (Accu-Chek) 1 each FS ACHS COUNTS INCLUDE 234 BEDS AT THE [facility] Last Admin: 10/14/19 21:14 Dose: 1 each Documented by: Diazepam (Valium) 2 mg PO DAILYP PRN PRN Reason: Anxiety Docusate Sodium (Colace) 100 mg PO BID COUNTS INCLUDE 234 BEDS AT THE [facility] Last Admin: 10/14/19 21:09 Dose: 100 mg Documented by: Duloxetine HCl (Cymbalta) 90 mg PO HS COUNTS INCLUDE 234 BEDS AT THE [facility] Last Admin: 10/14/19 21:08 Dose: 90 mg Documented by: Escitalopram Oxalate (Lexapro) 20 mg PO DAILY COUNTS INCLUDE 234 BEDS AT THE [facility] Last Admin: 10/14/19 09:04 Dose: 20 mg Documented by: Glucose (Insta-Glucose) 15 gm PO PRN PRN PRN Reason: Hypoglycemia Heparin Sodium (Porcine) (Heparin) 5,000 unit SQ Q12 COUNTS INCLUDE 234 BEDS AT THE [facility] Last Admin: 10/14/19 21:11 Dose: 5,000 unit Documented by: Hydralazine HCl (Apresoline) 10 mg IV Q4-6HP PRN PRN Reason: Hypertension Magnesium Sulfate (Magnesium Sulfate) 2 gm in 50 mls @ 50 mls/hr IV UD PRN PRN Reason: MG = or < 1.7 Acetaminophen (Ofirmev) 650 mg in 65 mls @ 130 mls/hr IV Q6HP PRN; Protocol PRN Reason: Per Pain Protocol/Fever > 101 Vancomycin HCl 1,500 mg/ (Sodium Chloride) 500 mls @ 333.3 mls/hr IV Q24H COUNTS INCLUDE 234 BEDS AT THE [facility] Last Admin: 10/14/19 09:47 Dose: 333 mls/hr Documented by: Insulin Glargine (Lantus) 35 unit SQ HS COUNTS INCLUDE 234 BEDS AT THE [facility] Last Admin: 10/14/19 21:12 Dose: 35 units Documented by: Insulin Human Lispro (Humalog) 0 unit SQ ACHS COUNTS INCLUDE 234 BEDS AT THE [facility]; Protocol Last Admin: 10/14/19 21:22 Dose: 1 unit Documented by: Iron Carb/Multivit/[place]/Folic Acid (Multivitamin W/Minerals) 1 tab PO DAILY COUNTS INCLUDE 234 BEDS AT THE [facility] Last Admin: 10/14/19 09:04 Dose: 1 tab Documented by: Loperamide HCl (Imodium) 4 mg PO BIDP PRN PRN Reason: Diarrhea Magnesium Hydroxide (Milk Of Magnesia) 30 ml PO HSP PRN PRN Reason: Constipation Melatonin (Melatonin 3mg Tablet) 3 mg PO HSP PRN PRN Reason: Insomnia Last Admin: 10/12/19 20:29 Dose: 3 mg Documented by: Ondansetron HCl (Zofran) 4 mg IV Q4-6HP PRN; Protocol PRN Reason: Nausea And Vomiting Victoza 6 Mg/Ml Pen 0 dose SC DAILY COUNTS INCLUDE 234 BEDS AT THE [facility] Last Admin: 10/14/19 09:03 Dose: 1 dose Documented by: Polyethylene Glycol (Miralax) 17 gm PO DAILYP PRN PRN Reason: Constipation Potassium Chloride (Klor-Con) 40 meq PO DAILYP PRN PRN Reason: K+ < 3.5 Potassium Chloride (Kdur) 10 meq PO QAMCC COUNTS INCLUDE 234 BEDS AT THE [facility] Last Admin: 10/14/19 08:00 Dose: 10 meq Documented by: Prazosin HCl (Minipress) 1 mg PO [facility] Last Admin: 10/14/19 21:09 Dose: 1 mg Documented by: Senna/Docusate Sodium (Senna Plus Tablet) 1 tab PO [facility] Last Admin: 10/14/19 21:09 Dose: 1 tab Documented by: Sitagliptin Phosphate (Januvia) 100 mg PO DAILY COUNTS INCLUDE 234 BEDS AT THE [facility] Last Admin: 10/14/19 09:04 Dose: 100 mg Documented by: Sodium Chloride (Saline Flush) 10 ml IV Q8 COUNTS INCLUDE 234 BEDS AT THE [facility] Last Admin: 10/15/19 07:09 Dose: Not Given Documented by: Topiramate (Topamax) 150 mg PO BID COUNTS INCLUDE 234 BEDS AT THE [facility] Last Admin: 10/14/19 21:10 Dose: 150 mg Documented by: Vancomycin HCl (Vancomycin Per Pharmacy) 1 order IV UD COUNTS INCLUDE 234 BEDS AT THE [facility]; Protocol Medical - PN: A/P - Time Spent With Patient Total time spent is greater than 50% in coordination of care (as documented) at patient's floor/unit and/or counseling patient: - Narrative A/P Narrative: A: *Cellulitis with furunculosis/abscess medial and posterior b/l Thigh with MRSA: s/p I&D (10/11) *Early sepsis: clinically resolved *Brief seizure activity: similar to previous episodes per patient. Currently on Topamax *DM type II: *Mild BANG: improved *Morbid obesity: BMI over 65 *Hypertension: *History of TIA: continue Plavix statin *Hyperlipidemia: continue statin *Anxiety disorder: continue SSRI/Cymbalta/diazepam Plan: -Continue IV vancomycin, transition to zyvox upon d/c for oral -Dressing changes/wound care -Seizure watch -basal prandial insulin, CC diet -restart home ACEI/lasix -Continue PT OT nutrition support -SNF transfer scheduled on Wednesday per SNF -ppx: heparin Full code Medical - PN: Qual - VTE Deep Vein Thrombosis/Pulmonary Embolism Present on Admission: No
[2019-10-15] MEDS: POTASSIUM CHLORIDE 10 MEQ TABLET PO SCH (08:32)
[2019-10-15] MEDS: ESCITALOPRAM 20 MG TABLET PO SCH (08:32)
[2019-10-15] MEDS: INSULIN LISPRO 1 UNIT/0.01 ML UNIT SQ SCH ×4 (08:32→20:45)
[2019-10-15] MEDS: CLOPIDOGREL 75 MG TABLET PO SCH (08:33)
[2019-10-15] MEDS: MULTIVIT,THER IRON,CA,FA & MIN 1 TABLET PO SCH (08:33)
[2019-10-15] MEDS: TOPIRAMATE 100 MG TABLET PO SCH ×2 (08:33→20:44)
[2019-10-15] MEDS: DOCUSATE SODIUM 100 MG CAPSULE PO SCH ×2 (08:33→20:44)
[2019-10-15] MEDS: FUROSEMIDE 40 MG TABLET PO SCH (08:34)
[2019-10-15] MEDS: sitaGLIPtin 100 MG TABLET PO SCH (08:34)
[2019-10-15] MEDS: HEPARIN 5,000 UNIT/ML VIAL SQ SCH ×2 (08:35→20:44)
[2019-10-15] MEDS: VANCOMYCIN 1,500 MG in 0.9 % SODIUM CHLORIDE 500 ML IV SCH (08:36)
--- NOTE | 2019-10-15 10:15 | Discharge Summary ---
Medical - DS: Prov Patient information: Note initiated : 10/15/19 at 10:14 am Service Date, if different from initiated Date: [] Patient: Kait Tolentino 53 y/o F admitted on 10/09/19 for Abdominal Discomfort, Abscesses to RLE, Fever. Chief Complaint: [] Date of admission: 10/09/19 22:47 Discharge date: 10/17/19 Primary care physician: Yuri Hawk MD Consults: 10/09/19 Consult to Physician [CONS] Stat Comment: Consulting Provider: Jon Bunch Reason For Exam: Physician to Consult 10/10/19 08:42 Consult to Physician [CONS] Routine Comment: Consulting Provider: Katalina Skinner Reason For Exam: Physician to Consult 10/10/19 10:29 Consult to Physician [CONS] Routine Comment: Consulting Provider: Rafa Yu Reason For Exam: Physician to Consult Medical - DS: Meds - Discharge Medications Prescriptions: Vancomycin 1,500 mg IV Q24H #1 vial Lisinopril [Zestril] 10 mg PO HS #10 tab Active and Home Medications: Home Medications Atorvastatin [Lipitor] 40 mg PO ONCE 10/09/19 [History Confirmed 10/09/19 Last Taken Unknown] Clopidogrel Bisulfate [Plavix] 75 mg PO DAILY 10/09/19 [History Confirmed 10/09/19 Last Taken Unknown] DULoxetine HCL [Cymbalta] 30 mg PO HS 10/09/19 [History Confirmed 10/09/19 Last Taken Unknown] Diazepam [Valium] 1 tab PO DAILY PRN 10/09/19 [History Confirmed 10/09/19 Last Taken Unknown] Escitalopram [Lexapro] 20 mg PO DAILY 10/09/19 [History Confirmed 10/09/19 Last Taken Unknown] Furosemide [Lasix] 40 mg PO DAILY 10/09/19 [History Confirmed 10/09/19 Last Taken Unknown] Insulin Detemir [Levemir Flextouch] 35 unit SQ HS 10/09/19 [History Confirmed 10/09/19 Last Taken Unknown] Lisinopril [Zestril] 20 mg PO HS 10/09/19 [History Confirmed 10/09/19 Last Taken Unknown] Loperamide [Imodium] 4 mg PO BID PRN 10/09/19 [History Confirmed 10/09/19 Last Taken Unknown] Potassium Chloride 10 meq PO DAILY 10/09/19 [History Confirmed 10/09/19 Last Taken Unknown] Prazosin [Minipress] 1 mg PO HS 10/09/19 [History Confirmed 10/09/19 Last Taken Unknown] Topiramate [Topamax] 150 mg PO BID 10/09/19 [History Confirmed 10/09/19 Last Taken Unknown] Victoza 2-Wil 1.8 mg SQ DAILY 10/09/19 [History Confirmed 10/09/19 Last Taken Unknown] metFORMIN HCL [Metformin HCl] 1,000 mg PO BID 10/09/19 [History Confirmed 10/09/19 Last Taken Unknown] Home Medications Atorvastatin [Lipitor] 40 mg PO ONCE 10/09/19 [History Confirmed 10/09/19 Last Taken Unknown] Clopidogrel Bisulfate [Plavix] 75 mg PO DAILY 10/09/19 [History Confirmed 10/09/19 Last Taken Unknown] DULoxetine HCL [Cymbalta] 30 mg PO HS 10/09/19 [History Confirmed 10/09/19 Last Taken Unknown] Diazepam [Valium] 1 tab PO DAILY PRN 10/09/19 [History Confirmed 10/09/19 Last Taken Unknown] Escitalopram [Lexapro] 20 mg PO DAILY 10/09/19 [History Confirmed 10/09/19 Last Taken Unknown] Furosemide [Lasix] 40 mg PO DAILY 10/09/19 [History Confirmed 10/09/19 Last Taken Unknown] Insulin Detemir [Levemir Flextouch] 35 unit SQ HS 10/09/19 [History Confirmed 10/09/19 Last Taken Unknown] Loperamide [Imodium] 4 mg PO BID PRN 10/09/19 [History Confirmed 10/09/19 Last Taken Unknown] Potassium Chloride 10 meq PO DAILY 10/09/19 [History Confirmed 10/09/19 Last Taken Unknown] Prazosin [Minipress] 1 mg PO HS 10/09/19 [History Confirmed 10/09/19 Last Taken Unknown] Topiramate [Topamax] 150 mg PO BID 10/09/19 [History Confirmed 10/09/19 Last Taken Unknown] Victoza 2-Wil 1.8 mg SQ DAILY 10/09/19 [History Confirmed 10/09/19 Last Taken Unknown] metFORMIN HCL [Metformin HCl] 1,000 mg PO BID 10/09/19 [History Confirmed Last Taken Unknown] Lisinopril [Zestril] 10 mg PO HS #10 tab 10/16/19 [Rx Last Taken Unknown] Vancomycin 1,500 mg IV Q24H #1 vial 10/17/19 [Rx Last Taken Unknown] Medical - DS: Hosp Hospital Course: A: *Cellulitis with furunculosis/abscess medial and posterior b/l Thigh with MRSA: s/p I&D (10/11) *Early sepsis: clinically resolved *Brief seizure activity: absence in nature, similar to previous episodes per patient. Currently on Topamax *DM type II: *Mild BANG: improved *Morbid obesity: BMI over 65 *Hypertension: controlled *History of TIA: continue Plavix statin *Hyperlipidemia: continue statin *Anxiety disorder: continue SSRI/Cymbalta/diazepam Ms. Tolentino is a 53 year old F with known history of diabetes/morbidly obese with BMI >65/hypertension and history of TIA who presents with shaking chills fever along with lower abdominal pain. Patient symptoms have progressed over the last few days. She has had recurrent boils around the inside and back of the thigh area. She was treated for the same at [facility] in March and underwent incision and drainage of groin abscess. For the last couple days she has had increasing malaise/fever/chills and lack of appetite. She noticed a couple of boils started draining. She presents today to the ER along with her Duglas. Initial work-up was consistent with severe sepsis with a fever 103 tachycardia tachypnea and medial thigh boils with active drainage. CT abdomen was unremarkable. Thigh ultrasound pending. Hospitalist service was consulted for admission. At the time of evaluation patient is alert but anxious. She is febrile at 101.4. She received 1 dose of Rocephin. She denies change medication. Her blood sugars has not been optimally controlled recently. She denies smoking or alcoholism. She carries a history of MRSA and recurrent boils. She denies diarrhea, dysuria, headache, photophobia but endorses to myalgias. 10/10-patient doing well. Fever defervesced. Minimal pain diarrhea. By ultrasound today. Continuing antibiotic coverage. White count 6000. Tachycardia improved. Blood sugars around goal. Creatinine 1.3. Continue holding RADHA inhibitors. Diabetic diet 10/11-patient doing well. T-max 102. Stable hemodynamics with white count 6000. Surgery on board. Will undergo incision drainage today. Continue antibiotic coverage. MRSA on cultures. De-escalate antibiotics. Family at bedside. Addressed concerns and answered questions. No concerns expressed by nursing staff. 10/12-patient doing well. Status post excisional debridement of bilateral thigh abscess by surgery. On Zyvox for MRSA. No overnight fever chills. Stable hemodynamics. Transferring to medical floor. Will possibly discharge in 24 to 48 hours pending therapy evaluation. 10/13-patient clinically improved. No overnight events. No concerns expressed by nursing staff. Gauze packing at the surgical site. Minimal drainage. No fever or shakes. On IV vancomycin. Target antibiotic for additional 5 days. Case management coordinate SNF transfer likely Wednesday or sooner pending clinical improvement and surgery recommendations. Continue PT OT. 10/14-patient had a blackout episode while undergoing physical therapy. Patient felt it was like a seizure episode. No postictal phase. Patient on home dose Topamax. Stable hemodynamics. Denies chest pain headache or vision changes. Ongoing PT OT/wound care. On antibiotic coverage. Anticipate discharge on Wednesday to SNF. 10/15 No overnight events. No new complaints. Feeling approved overall. 10/16 Occasional headache. Slept well. No other complaints. Waiting placement. 10/17 Nurse witnessed what is described as an absence seizure, brief. Quickly came out. No sequelae. Patient has these several times a week. No New complaints. Awaiting authorization for placement. Discharge diagnosis: Cellulitis with furunculosis and abscess in her thighs. Early sepsis Secondary discharge diagnosis: Brief seizure diabetes mild BANG morbid obesity hypertension history of TIA hyperlipidemia Anxiety - Time Spent with Patient Total time spent providing and/or coordinating discharge services: Greater than 30 minutes Medical - DS: Exam - Constitutional Vitals: Vital Signs Temp Pulse Pulse Resp BP Pulse Ox 10/15/19 07:47 97.9 F 78 20 125/65 96 10/15/19 04:00 97.4 F 80 16 112/50 10/14/19 23:36 97.9 F 80 12 120/63 95 10/14/19 18:34 98.8 F 76 18 135/74 98 10/14/19 16:00 97.9 F 81 18 146/78 97 10/14/19 11:47 99.6 F H 84 18 122/65 98 Intake and Output 10/14/19 10/15/19 10/15/19 21:59 05:59 13:59 Intake Total 1440 400 940 Output Total 900 975 Balance 540 -575 940 Intake: IV 500 Vancomycin 1,500 mg In Sodium 500 Chloride 0.9% 500 ml @ 333.3 mls/hr IV Q24H NITESH Rx#: [id number] Oral 1440 400 440 Output: Void Amount 900 975 Other: Meal Dinner Breakfast Percent of Meal Consumed 100% 100% Feeding Ability Independent Assist with Tray Set Up Urine Appearance Clear Clear Urine Color Dark Yellow Dark Yellow Weight 175.087 kg Medical - DS: A/P - Patient/Caregiver Discharge Instructions Activity: as per physical therapy Diet: Consistent Carbohydrate Prescriptions: Vancomycin 1,500 mg IV Q24H #1 vial Prescription Printed Lisinopril [Zestril] 10 mg PO HS #10 tab - Follow up Plan Follow up with: Yuri Hawk MD [Primary Care Provider] - Katalina Skinner MD [Physician] - Disposition: Xf SNF Prognosis: Fair Rehab Potential: Fair I certify that the patient requires SNF services: Yes Overall status at discharge: patient is progressing back to baseline Medical - DS: Qual - VTE Deep Vein Thrombosis/Pulmonary Embolism Present on Admission: No
[2019-10-15] MEDS: ATORVASTATIN 40 MG TABLET PO SCH (20:43)
[2019-10-15] MEDS: DULoxetine 30 MG CAPSULE PO SCH (20:43)
[2019-10-15] MEDS: SENNOSIDES/DOCUSATE SODIUM 1 TAB TABLET PO SCH (20:44)
[2019-10-15] MEDS: PRAZOSIN 1 MG CAPSULE PO SCH (20:44)
[2019-10-15] MEDS: INSULIN GLARGINE, HUMAN 1 UNIT/0.01 ML SQ SCH (20:46)
[2019-10-16] MEDS: HYDROcodone/APAP 5/325MG TABLET PO PRN ×3 (04:06→23:32)
[2019-10-16] MEDS: 0.9 % SODIUM CHLORIDE 10 ML SYRINGE IV SCH ×3 (04:31→21:03)
[2019-10-16] MEDS: VANCOMYCIN 1,500 MG in 0.9 % SODIUM CHLORIDE 500 ML IV SCH (08:21)
[2019-10-16] MEDS: TOPIRAMATE 100 MG TABLET PO SCH ×2 (08:22→21:04)
[2019-10-16] MEDS: HEPARIN 5,000 UNIT/ML VIAL SQ SCH ×2 (08:22→21:03)
[2019-10-16] MEDS: ESCITALOPRAM 20 MG TABLET PO SCH (08:23)
[2019-10-16] MEDS: sitaGLIPtin 100 MG TABLET PO SCH (08:23)
[2019-10-16] MEDS: MULTIVIT,THER IRON,CA,FA & MIN 1 TABLET PO SCH (08:23)
[2019-10-16] MEDS: POTASSIUM CHLORIDE 10 MEQ TABLET PO SCH (08:23)
[2019-10-16] MEDS: INSULIN LISPRO 1 UNIT/0.01 ML UNIT SQ SCH ×4 (08:24→21:04)
[2019-10-16] MEDS: FUROSEMIDE 40 MG TABLET PO SCH (08:24)
[2019-10-16] MEDS: CLOPIDOGREL 75 MG TABLET PO SCH (08:24)
[2019-10-16] MEDS: DOCUSATE SODIUM 100 MG CAPSULE PO SCH ×2 (08:24→21:05)
--- NOTE | 2019-10-16 10:33 | Internal Med Progress Note ---
Medical - PN: Subj Patient information: Note initiated : 10/16/19 at 10:31 am Service Date, if different from initiated Date: [] Patient: Kait Tolentino a 53 y/o F admitted on 10/09/19 for Abdominal Discomfort, Abscesses to RLE, Fever. Chief Complaint: [] Interval history: Ms. Tolentino is a 53 year old F with known history of diabetes/morbidly obese with BMI >65/hypertension and history of TIA who presents with shaking chills fever along with lower abdominal pain. Patient symptoms have progressed over the last few days. She has had recurrent boils around the inside and back of the thigh area. She was treated for the same at [facility] in March and underwent incision and drainage of groin abscess. For the last couple days she has had increasing malaise/fever/chills and lack of appetite. She noticed a couple of boils started draining. She presents today to the ER along with her Duglas. Initial work-up was consistent with severe sepsis with a fever 103 tachycardia tachypnea and medial thigh boils with active drainage. CT abdomen was unremarkable. Thigh ultrasound pending. Hospitalist service was consulted for admission. At the time of evaluation patient is alert but anxious. She is febrile at 101.4. She received 1 dose of Rocephin. She denies change medication. Her blood sugars has not been optimally controlled recently. She denies smoking or alcoholism. She carries a history of MRSA and recurrent boils. She denies diarrhea, dysuria, headache, photophobia but endorses to myalgias. 10/10-patient doing well. Fever defervesced. Minimal pain diarrhea. By ultrasound today. Continuing antibiotic coverage. White count 6000. Tachycardia improved. Blood sugars around goal. Creatinine 1.3. Continue holding RADHA inhibitors. Diabetic diet 10/11-patient doing well. T-max 102. Stable hemodynamics with white count 6000. Surgery on board. Will undergo incision drainage today. Continue antibiotic coverage. MRSA on cultures. De-escalate antibiotics. Family at [facility]. Addressed concerns and answered questions. No concerns expressed by nursing staff. 10/12-patient doing well. Status post excisional debridement of bilateral thigh abscess by surgery. On Zyvox for MRSA. No overnight fever chills. Stable hemodynamics. Transferring to medical floor. Will possibly discharge in 24 to 48 hours pending therapy evaluation. 10/13-patient clinically improved. No overnight events. No concerns expressed by nursing staff. Gauze packing at the surgical site. Minimal drainage. No fever or shakes. On IV vancomycin. Target antibiotic for additional 5 days. Case management coordinate SNF transfer likely Wednesday or sooner pending clinical improvement and surgery recommendations. Continue PT OT. 10/14-patient had a blackout episode while undergoing physical therapy. Patient felt it was like a seizure episode. No postictal phase. Patient on home dose Topamax. Stable hemodynamics. Denies chest pain headache or vision changes. Ongoing PT OT/wound care. On antibiotic coverage. Anticipate discharge on Wednesday to SNF. 10/15 No overnight events. No new complaints. Feeling approved overall. 10/16 Occasional headache. Slept well. No other complaints. Waiting placement. Review of Systems: denies fever/chills/nausea/vomiting/chest or abdominal pain/cough/dyspnea/diarrhea. Otherwise see above. - Constitutional Vitals: Vital Signs Temp Pulse Resp BP Pulse Ox 98.2 F 81 16 126/73 97 10/16/19 08:00 10/16/19 08:00 10/16/19 08:00 10/16/19 08:00 10/16/19 08:00 Period Temp Pulse Resp BP Sys/Jay Pulse Ox Last 24 Hr 97.3 F-98.5 F 79-86 16-20 102-128/54-73 95-99 Intake and Output 10/15/19 10/16/19 10/16/19 21:59 05:59 13:59 Intake Total 1500 200 Output Total 1800 Balance -300 200 Weight 175.767 kg Intake & Output: Intake & Output 10/15/19 10/16/19 10/16/19 21:59 05:59 13:59 Intake Total 1500 200 Output Total 1800 Balance -300 200 Weight 175.767 kg Intake: IV 500 Vancomycin 1,500 mg In Sodium 500 Chloride 0.9% 500 ml @ 333.3 mls/hr IV Q24H [facility] Rx#: [id number] Oral 1000 200 Output: Void Amount 1800 Other: Meal Dinner Percent of Meal Consumed 100% Feeding Ability Independent Urine Appearance Clear Urine Color Bright Yellow Urine Odor Normal Stool Size Smear Stool Color Brown Stool Consistency Soft Formed # Bowel Movements 1 Exam: General: Alert, Awake, No acute Distress, obese Eyes/N/T: EOMI, Head/Neck: neck supple, CV: RRR, No murmurs, Pulm: Clear b/l, no wheezing/rhonchi/rales Abd: soft, nontender, +BS x4 Ext: no clubbing/cyanosis/mild edema LE's Neuro: Alert, no focal deficits, moves all extremities, Skin: warm/dry Medical - PN: Obj Da - Labs CBC & Chem 7: 10/14/19 04:45 10/14/19 04:45 Labs: Abnormal Lab Results 10/14/19 10/14/19 04:45 04:45 RBC 3.07 L Hgb 9.1 L Hct 27.8 L MPV 7.1 L RBC Morphology Abnorm A Polychromasia Few A Anisocytosis Few A Chloride 109 H Carbon Dioxide 19 L Glucose 136 H Globulin 4.0 H Albumin/Globulin Ratio 0.8 L Triglycerides 257 H Meds: Medications Acetaminophen (Tylenol) 650 mg PO Q4-6HP PRN; Protocol PRN Reason: Per Pain Protocol/Fever > 101 Hydrocodone Bitart/Acetaminophen (Addison 5/325mg) 0 tab PO Q4HP PRN; Protocol PRN Reason: Per Pain Protocol Last Admin: 10/16/19 04:06 Dose: 2 tab Documented by: Atorvastatin Calcium (Lipitor) [address] [facility] Last Admin: 10/15/19 20:43 Dose: 40 mg Documented by: Clopidogrel Bisulfate (Plavix) 75 mg PO DAILY [facility] Last Admin: 10/16/19 08:24 Dose: 75 mg Documented by: Dextrose (Dextrose 50%) 0 ml IV UD PRN PRN Reason: Hypoglycemia Diagnostic Test (Pha) (Accu-Chek) 1 each FS ACHS [facility] Last Admin: 10/16/19 08:24 Dose: 1 each Documented by: Diazepam (Valium) 2 mg PO DAILYP PRN PRN Reason: Anxiety Docusate Sodium (Colace) 100 mg PO BID [facility] Last Admin: 10/16/19 08:24 Dose: 100 mg Documented by: Duloxetine HCl (Cymbalta) 90 mg PO HS [facility] Last Admin: 10/15/19 20:43 Dose: 90 mg Documented by: Escitalopram Oxalate (Lexapro) 20 mg PO DAILY [facility] Last Admin: 10/16/19 08:23 Dose: 20 mg Documented by: Furosemide (Lasix) 40 mg PO DAILY [facility] Last Admin: 10/16/19 08:24 Dose: 40 mg Documented by: Glucose (Insta-Glucose) 15 gm PO PRN PRN PRN Reason: Hypoglycemia Heparin Sodium (Porcine) (Heparin) 5,000 unit SQ Q12 [facility] Last Admin: 10/16/19 08:22 Dose: 5,000 unit Documented by: Hydralazine HCl (Apresoline) 10 mg IV Q4-6HP PRN PRN Reason: Hypertension Magnesium Sulfate (Magnesium Sulfate) 2 gm in 50 mls @ 50 mls/hr IV UD PRN PRN Reason: MG = or < 1.7 Acetaminophen (Ofirmev) 650 mg in 65 mls @ 130 mls/hr IV Q6HP PRN; Protocol PRN Reason: Per Pain Protocol/Fever > 101 Last Admin: 10/15/19 18:56 Dose: 130 mls/hr Documented by: Vancomycin HCl 1,500 mg/ (Sodium Chloride) 500 mls @ 333.3 mls/hr IV Q24H [facility] Last Admin: 10/16/19 08:21 Dose: 333 mls/hr Documented by: Insulin Glargine (Lantus) 35 unit SQ HS [facility] Last Admin: 10/15/19 20:46 Dose: 35 units Documented by: Insulin Human Lispro (Humalog) 0 unit SQ ACHS [facility]; Protocol Last Admin: 10/16/19 08:24 Dose: Not Given Documented by: Iron Carb/Multivit/[place]/Folic Acid (Multivitamin W/Minerals) 1 tab PO DAILY [facility] Last Admin: 10/16/19 08:23 Dose: 1 tab Documented by: Loperamide HCl (Imodium) 4 mg PO BIDP PRN PRN Reason: Diarrhea Magnesium Hydroxide (Milk Of Magnesia) 30 ml PO HSP PRN PRN Reason: Constipation Melatonin (Melatonin 3mg Tablet) 3 mg PO HSP PRN PRN Reason: Insomnia Last Admin: 10/12/19 20:29 Dose: 3 mg Documented by: Ondansetron HCl (Zofran) 4 mg IV Q4-6HP PRN; Protocol PRN Reason: Nausea And Vomiting Last Admin: 10/15/19 18:56 Dose: 4 mg Documented by: Victoza 6 Mg/Ml Pen 0 dose SC DAILY [facility] Last Admin: 10/16/19 08:21 Dose: 1 dose Documented by: Polyethylene Glycol (Miralax) 17 gm PO DAILYP PRN PRN Reason: Constipation Potassium Chloride (Klor-Con) 40 meq PO DAILYP PRN PRN Reason: K+ < 3.5 Potassium Chloride (Kdur) 10 meq PO QAMCC [facility] Last Admin: 10/16/19 08:23 Dose: 10 meq Documented by: Prazosin HCl (Minipress) [address] [facility] Last Admin: 10/15/19 20:44 Dose: 1 mg Documented by: Senna/Docusate Sodium (Senna Plus Tablet) [address] [facility] Last Admin: 10/15/19 20:44 Dose: 1 tab Documented by: Sitagliptin Phosphate (Januvia) 100 mg PO DAILY [facility] Last Admin: 10/16/19 08:23 Dose: 100 mg Documented by: Sodium Chloride (Saline Flush) 10 ml IV Q8 [facility] Last Admin: 10/16/19 04:31 Dose: 10 ml Documented by: Topiramate (Topamax) 150 mg PO BID [facility] Last Admin: 10/16/19 08:22 Dose: 150 mg Documented by: Vancomycin HCl (Vancomycin Per Pharmacy) 1 order IV UD [facility]; Protocol Medical - PN: A/P - Time Spent With Patient Total time spent is greater than 50% in coordination of care (as documented) at patient's floor/unit and/or counseling patient: - Narrative A/P Narrative: A: *Cellulitis with furunculosis/abscess medial and posterior b/l Thigh with MRSA: s/p I&D (10/11) *Early sepsis: clinically resolved *Brief seizure activity: similar to previous episodes per patient. Currently on Topamax *DM type II: *Mild BANG: improved *Morbid obesity: BMI over 65 *Hypertension: controlled here w/o meds *History of TIA: continue Plavix statin *Hyperlipidemia: continue statin *Anxiety disorder: continue SSRI/Cymbalta/diazepam Plan: -Continue IV vancomycin, unable to do zyvox given SSRI home med -Dressing changes/wound care -Seizure watch -basal prandial insulin, CC diet -restart home ACEI(decrease)/lasix -Continue PT OT nutrition support -SNF transfer scheduled on Wednesday per SNF -ppx: heparin Full code Medical - PN: Qual - VTE Deep Vein Thrombosis/Pulmonary Embolism Present on Admission: No
[2019-10-16] MEDS ORDERED: LISINOPRIL 10 MG TABLET PO SCH (21:00)
[2019-10-16] MEDS: INSULIN GLARGINE, HUMAN 1 UNIT/0.01 ML SQ SCH (21:04)
[2019-10-16] MEDS: DULoxetine 30 MG CAPSULE PO SCH (21:04)
[2019-10-16] MEDS: PRAZOSIN 1 MG CAPSULE PO SCH (21:05)
[2019-10-16] MEDS: ATORVASTATIN 40 MG TABLET PO SCH (21:05)
[2019-10-16] MEDS: SENNOSIDES/DOCUSATE SODIUM 1 TAB TABLET PO SCH (21:05)
[2019-10-17] MEDS: HYDROcodone/APAP 5/325MG TABLET PO PRN (04:04)
[2019-10-17] MEDS: 0.9 % SODIUM CHLORIDE 10 ML SYRINGE IV SCH ×2 (04:05→12:21)
[2019-10-17] MEDS: INSULIN LISPRO 1 UNIT/0.01 ML UNIT SQ SCH ×2 (07:08→12:20)
[2019-10-17] MEDS: TOPIRAMATE 100 MG TABLET PO SCH (09:42)
[2019-10-17] MEDS: HEPARIN 5,000 UNIT/ML VIAL SQ SCH (09:42)
[2019-10-17] MEDS: ESCITALOPRAM 20 MG TABLET PO SCH (09:44)
[2019-10-17] MEDS: CLOPIDOGREL 75 MG TABLET PO SCH (09:44)
[2019-10-17] MEDS: FUROSEMIDE 40 MG TABLET PO SCH (09:45)
[2019-10-17] MEDS: sitaGLIPtin 100 MG TABLET PO SCH (09:45)
[2019-10-17] MEDS: MULTIVIT,THER IRON,CA,FA & MIN 1 TABLET PO SCH (09:45)
[2019-10-17] MEDS: DOCUSATE SODIUM 100 MG CAPSULE PO SCH (09:45)
[2019-10-17] MEDS: POTASSIUM CHLORIDE 10 MEQ TABLET PO SCH (09:45)
[2019-10-17] MEDS: VANCOMYCIN 1,500 MG in 0.9 % SODIUM CHLORIDE 500 ML IV SCH (10:10)
--- NOTE | 2019-10-17 11:02 | Internal Med Progress Note ---
Medical - PN: Subj Patient information: Note initiated : 10/17/19 at 10:55 am Service Date, if different from initiated Date: [] Patient: Kait Tolentino a 53 y/o F admitted on 10/09/19 for Abdominal Discomfort, Abscesses to RLE, Fever. Chief Complaint: [] Interval history: Ms. Tolentino is a 53 year old F with known history of diabetes/morbidly obese with BMI >65/hypertension and history of TIA who presents with shaking chills fever along with lower abdominal pain. Patient symptoms have progressed over the last few days. She has had recurrent boils around the inside and back of the thigh area. She was treated for the same at [facility] in March and underwent incision and drainage of groin abscess. For the last couple days she has had increasing malaise/fever/chills and lack of appetite. She noticed a couple of boils started draining. She presents today to the ER along with her Duglas. Initial work-up was consistent with severe sepsis with a fever 103 tachycardia tachypnea and medial thigh boils with active drainage. CT abdomen was unremarkable. Thigh ultrasound pending. Hospitalist service was consulted for admission. At the time of evaluation patient is alert but anxious. She is febrile at 101.4. She received 1 dose of Rocephin. She denies change medication. Her blood sugars has not been optimally controlled recently. She denies smoking or alcoholism. She carries a history of MRSA and recurrent boils. She denies diarrhea, dysuria, headache, photophobia but endorses to myalgias. 10/10-patient doing well. Fever defervesced. Minimal pain diarrhea. By ultrasound today. Continuing antibiotic coverage. White count 6000. Tachycardia improved. Blood sugars around goal. Creatinine 1.3. Continue holding RADHA inhibitors. Diabetic diet 10/11-patient doing well. T-max 102. Stable hemodynamics with white count 6000. Surgery on board. Will undergo incision drainage today. Continue antibiotic coverage. MRSA on cultures. De-escalate antibiotics. Family at [facility]. Addressed concerns and answered questions. No concerns expressed by nursing staff. 10/12-patient doing well. Status post excisional debridement of bilateral thigh abscess by surgery. On Zyvox for MRSA. No overnight fever chills. Stable hemodynamics. Transferring to medical floor. Will possibly discharge in 24 to 48 hours pending therapy evaluation. 10/13-patient clinically improved. No overnight events. No concerns expressed by nursing staff. Gauze packing at the surgical site. Minimal drainage. No fever or shakes. On IV vancomycin. Target antibiotic for additional 5 days. Case management coordinate SNF transfer likely Wednesday or sooner pending clinical improvement and surgery recommendations. Continue PT OT. 10/14-patient had a blackout episode while undergoing physical therapy. Patient felt it was like a seizure episode. No postictal phase. Patient on home dose Topamax. Stable hemodynamics. Denies chest pain headache or vision changes. Ongoing PT OT/wound care. On antibiotic coverage. Anticipate discharge on Wednesday to SNF. 10/15 No overnight events. No new complaints. Feeling approved overall. 10/16 Occasional headache. Slept well. No other complaints. Waiting placement. 10/17 Nurse witnessed what is described as an absence seizure, brief. Quickly came out. No sequelae. Patient has these several times a week. New complaints. Awaiting authorization for placement. Review of Systems: denies fever/chills/nausea/vomiting/chest or abdominal pain/cough/dyspnea/diarrhea. Otherwise see above. - Constitutional Vitals: Vital Signs Temp Pulse Resp BP Pulse Ox 98.2 F 84 18 118/65 96 10/17/19 08:00 10/17/19 08:00 10/17/19 08:00 10/17/19 08:00 10/17/19 08:00 Period Temp Pulse Resp BP Sys/Jay Pulse Ox Last 24 Hr 97.8 F-98.8 F 77-92 18-24 118-143/60-79 95-98 Intake and Output 10/16/19 10/17/19 10/17/19 21:59 05:59 13:59 Intake Total 640 240 500 Output Total 2550 800 1000 Balance -1910 -560 -500 Weight 175.313 kg Intake & Output: Intake & Output 10/16/19 10/17/19 10/17/19 21:59 05:59 13:59 Intake Total 640 240 500 Output Total 2550 800 1000 Balance -1910 -560 -500 Weight 175.313 kg Intake: IV 500 Vancomycin 1,500 mg In Sodium 500 Chloride 0.9% 500 ml @ 333.3 mls/hr IV Q24H [facility] Rx#: [id number] Oral 640 240 Output: Void Amount 2550 800 1000 Other: Meal Dinner Percent of Meal Consumed 100% Feeding Ability Independent Urine Appearance Clear Clear Urine Color Bright Yellow Straw Urine Odor Normal Normal Stool Size Large Stool Color Brown Stool Consistency Soft Formed # Bowel Movements 1 Exam: General: Alert, Awake, No acute Distress, obese Eyes/N/T: EOMI, Head/Neck: neck supple, CV: RRR, No murmurs, Pulm: Clear b/l, no wheezing/rhonchi/rales Abd: soft, nontender, +BS x4 Ext: no clubbing/cyanosis/mild edema LE's Neuro: Alert, no focal deficits, moves all extremities, Skin: warm/dry Medical - PN: Obj Da - Labs CBC & Chem 7: 10/14/19 04:45 10/14/19 04:45 Meds: Medications Acetaminophen (Tylenol) 650 mg PO Q4-6HP PRN; Protocol PRN Reason: Per Pain Protocol/Fever > 101 Hydrocodone Bitart/Acetaminophen ([place] 5/325mg) 0 tab PO Q4HP PRN; Protocol PRN Reason: Per Pain Protocol Last Admin: 10/17/19 04:04 Dose: 1 tab Documented by: Atorvastatin Calcium (Lipitor) 40 mg PO [facility] Last Admin: 10/16/19 21:05 Dose: 40 mg Documented by: Clopidogrel Bisulfate (Plavix) 75 mg PO DAILY [facility] Last Admin: 10/17/19 09:44 Dose: 75 mg Documented by: Dextrose (Dextrose 50%) 0 ml IV UD PRN PRN Reason: Hypoglycemia Diagnostic Test (Pha) (Accu-Chek) 1 each FS ACHS [facility] Last Admin: 10/17/19 07:08 Dose: 1 each Documented by: Diazepam (Valium) 2 mg PO DAILYP PRN PRN Reason: Anxiety Docusate Sodium (Colace) 100 mg PO BID [facility] Last Admin: 10/17/19 09:45 Dose: 100 mg Documented by: Duloxetine HCl (Cymbalta) 90 mg PO [facility] Last Admin: 10/16/19 21:04 Dose: 90 mg Documented by: Escitalopram Oxalate (Lexapro) 20 mg PO DAILY [facility] Last Admin: 10/17/19 09:44 Dose: 20 mg Documented by: Furosemide (Lasix) 40 mg PO DAILY [facility] Last Admin: 10/17/19 09:45 Dose: 40 mg Documented by: Glucose (Insta-Glucose) 15 gm PO PRN PRN PRN Reason: Hypoglycemia Heparin Sodium (Porcine) (Heparin) 5,000 unit SQ Q12 [facility] Last Admin: 10/17/19 09:42 Dose: 5,000 unit Documented by: Hydralazine HCl (Apresoline) 10 mg IV Q4-6HP PRN PRN Reason: Hypertension Magnesium Sulfate (Magnesium Sulfate) 2 gm in 50 mls @ 50 mls/hr IV UD PRN PRN Reason: MG = or < 1.7 Acetaminophen (Ofirmev) 650 mg in 65 mls @ 130 mls/hr IV Q6HP PRN; Protocol PRN Reason: Per Pain Protocol/Fever > 101 Last Admin: 10/15/19 18:56 Dose: 130 mls/hr Documented by: Vancomycin HCl 1,500 mg/ (Sodium Chloride) 500 mls @ 333.3 mls/hr IV Q24H [facility] Last Admin: 10/17/19 10:10 Dose: 333 mls/hr Documented by: Insulin Glargine (Lantus) 35 unit SQ [facility] Last Admin: 10/16/19 21:04 Dose: 35 units Documented by: Insulin Human Lispro (Humalog) 0 unit SQ ACHS [facility]; Protocol Last Admin: 10/17/19 07:08 Dose: Not Given Documented by: Iron Carb/Multivit/[place]/Folic Acid (Multivitamin W/Minerals) 1 tab PO DAILY [facility] Last Admin: 10/17/19 09:45 Dose: 1 tab Documented by: Lisinopril (Zestril) 10 mg PO HS [facility] Last Admin: 10/16/19 21:05 Dose: 10 mg Documented by: Loperamide HCl (Imodium) 4 mg PO BIDP PRN PRN Reason: Diarrhea Magnesium Hydroxide (Milk Of Magnesia) 30 ml PO HSP PRN PRN Reason: Constipation Melatonin (Melatonin 3mg Tablet) 3 mg PO HSP PRN PRN Reason: Insomnia Last Admin: 10/12/19 20:29 Dose: 3 mg Documented by: Ondansetron HCl (Zofran) 4 mg IV Q4-6HP PRN; Protocol PRN Reason: Nausea And Vomiting Last Admin: 10/15/19 18:56 Dose: 4 mg Documented by: Victoza 6 Mg/Ml Pen 0 dose SC DAILY [facility] Last Admin: 10/17/19 10:13 Dose: 1 dose Documented by: Polyethylene Glycol (Miralax) 17 gm PO DAILYP PRN PRN Reason: Constipation Potassium Chloride (Klor-Con) 40 meq PO DAILYP PRN PRN Reason: K+ < 3.5 Potassium Chloride (Kdur) 10 meq PO QAC [facility] Last Admin: 10/17/19 09:45 Dose: 10 meq Documented by: Prazosin HCl (Minipress) 1 mg PO [facility] Last Admin: 10/16/19 21:05 Dose: 1 mg Documented by: Senna/Docusate Sodium (Senna Plus Tablet) 1 tab PO HS [facility] Last Admin: 10/16/19 21:05 Dose: 1 tab Documented by: Sitagliptin Phosphate (Januvia) 100 mg PO DAILY [facility] Last Admin: 10/17/19 09:45 Dose: 100 mg Documented by: Sodium Chloride (Saline Flush) 10 ml IV Q8 [facility] Last Admin: 10/17/19 04:05 Dose: 10 ml Documented by: Topiramate (Topamax) 150 mg PO BID [facility] Last Admin: 10/17/19 09:42 Dose: 150 mg Documented by: Vancomycin HCl (Vancomycin Per Pharmacy) 1 order IV UD [facility]; Protocol Medical - PN: A/P - Time Spent With Patient Total time spent is greater than 50% in coordination of care (as documented) at patient's floor/unit and/or counseling patient: - Narrative A/P Narrative: A: *Cellulitis with furunculosis/abscess medial and posterior b/l Thigh with MRSA: s/p I&D (10/11) *Early sepsis: clinically resolved *Brief seizure activity: absence in nature, similar to previous episodes per patient. Currently on Topamax *DM type II: *Mild BANG: improved *Morbid obesity: BMI over 65 *Hypertension: controlled here w/o meds *History of TIA: continue Plavix statin *Hyperlipidemia: continue statin *Anxiety disorder: continue SSRI/Cymbalta/diazepam Plan: -Continue IV vancomycin, last dose tomorrow, unable to do zyvox given SSRI home med -Dressing changes/wound care -Seizure watch -basal prandial insulin, CC diet -restart home ACEI(decreased)/lasix -Continue PT OT nutrition support -awaiting placement -ppx: heparin Full code Medical - PN: Qual - VTE Deep Vein Thrombosis/Pulmonary Embolism Present on Admission: No
--- NOTE | 2019-10-18 10:21 | Operative Note ---
DATE OF OPERATION: 10/11/2019 PREOPERATIVE DIAGNOSIS: Bilateral thigh abscesses. POSTOPERATIVE DIAGNOSIS: Bilateral thigh abscesses. PROCEDURE: Excisional debridement of bilateral thigh abscesses. SURGEON: Katalina Skinner M.D. FINDINGS: Three abscesses of the left medial thigh and two large abscesses of the right posterior thigh. DESCRIPTION OF PROCEDURE: Under general anesthesia, the patient was placed in stirrups in lithotomy position. Her posterior thighs and perineum were prepped and draped in a sterile field. Initially, the abscess cavities of the left medial thigh were unroofed and suctioned. There was some necrotic fat which was excised with electrocautery. Irrigation was carried out and the areas were packed with gauze. Similar procedure was done on the right posterior thigh with unroofing of two large abscesses. Hemostasis was achieved. The abscess cavities were packed with Aquacel AG gauze and Aquacel AG strips. Large tape was placed to hold the gauze in place. The patient was taken out of stirrups and placed in supine position. She was awakened, extubated, and transferred to the bed and taken to the postanesthetic care unit in stable, satisfactory condition. LCS:chayito Job ID: [id number] Doc ID: [id number] Katalina Skinner M.D.
== END 2019-10-17 16:52 | DRG 854 ==
LOC: ED 14:31 → MEDSUR 22:47 → ICU 10-10 14:25 → MEDSUR 10-12 13:36
PROVIDERS: ADMIT Internal Medicine; ATTEND Internal Medicine